=== PATIENT | female | born 1945 | race African-American/Black ===

== ENCOUNTER → 2017-08-17 | Outpatient (CLI) | payer MEDICARE ==
--- NOTE | 2017-08-17 15:14 | WOMENS IMAGING REPORT ---
EXAM DESCRIPTION: 3D SCREENING MAMMO BILAT COMPLETED DATE/TIME: 08/17/2017 2:47 pm REASON FOR STUDY: SCREENING MAMMO Z12.31 ENCNTR SCREEN MAMMOGRAM FOR MALIGNANT NEOPLASM OF TRACI COMPARISON: 2008, 2012 TECHNIQUE: Standard craniocaudal and mediolateral oblique views of each breast recorded using digita l acquisition and breast tomosynthesis. LIMITATIONS: None. FINDINGS: No masses, calcifications or architectural distortion. No areas of suspicion. Read with the assistance of CAD. .[facility] - R2 Cenova Version 1.3 .[facility] - R2 Cenova Version 1.3 .[facility] - R2 Cenova Version 2.4 .[facility] - R2 Cenova Version 2.4 .[facility] - R2 Information Security Officer Version 9.2 IMPRESSION: NORMAL MAMMOGRAM. BIRADS 1. BREAST DENSITY: b. There are scattered areas of fibroglandular density. BIRAD: 1 NEGATIVE RECOMMENDATION: ROUTINE SCREENING COMMENT: The patient has been notified of the results by letter per SA requirements. Additional no tification policies are in place for contacting patient with suspicious or incomplete findings. Quality ID #[id number]: The [employer] recommends an annual screening mammogram for women aged 40 years or over. This facility utilizes a reminder system to ensure that all patients receive reminder letters, and/or direct phone calls for appointments. This includes reminders for routine scr eening mammograms, diagnostic mammograms, or other Breast Imaging Interventions when appropriate. Th is patient will be placed in the appropriate reminder system. The [employer] (ACR) has developed recommendations for screening MRI of the breast s in certain patient populations, to be used in conjunction with mammography. Breast MRI surveillanc e may be appropriate for women with more than 20% lifetime risk of developing breast cancer as deter mined by genetic testing, significant family history of the disease, or history of mantle radiation f or Hodgkins Disease. ACR Practice Guidelines 2008. DBT Technology DBT is a type of tomographic mammography. With conventional mammography, overlapping breast tissue ma y make lesions difficult to detect, even with good compression. DBT uses an x-ray tube that rotates a round the breast, taking images at different angles. These images are then combined to create thin sl ices of the breast that the radiologist can view as a 3D reconstruction. The [employer] unit can perform full-field digital mammograms (2D imaging); or DBT (3D imaging); or both, in a combination mode that quickly performs both the mammogram and the tomosynthesis scan while the breast is still compressed. PQRS 6045F: Fluoroscopic imaging is not utilized for breast tomosynthesis. TECHNICAL DOCUMENTATION: FINDING NUMBER: (1) ASSESSMENT: (1) JOB ID: [id number] [employer]- All Rights Reserved
== END ==
LOC: WI 14:27
PROVIDERS: ATTEND Internal Medicine
DX: Z12.31 Encounter for screening mammogram for malignant neoplasm of breast (principal)
CPT/HCPCS: 77063; G0202; 77067

== ENCOUNTER 2018-10-24 11:31 | Emergency (ER) | payer MEDICARE ==
--- NOTE | 2018-10-24 12:14 | ER Document Report ---
ED Medical Screen (RME) - General Chief Complaint: Cold Symptoms Stated Complaint: COLD SYMPTOMS Time Seen by Provider: 10/24/18 12:13 Mode of Arrival: Wheelchair Information source: Patient, Relative TRAVEL OUTSIDE OF THE [place] IN LAST 30 DAYS: No - HPI Patient complains to provider of: cough Onset: Other - pt with c/o cough and congestion for the past 2-3 wks - Related Data Allergies/Adverse Reactions: No Known Allergies Allergy (Unverified 02/13/15 13:55) Past Medical History - Social History Chew tobacco use (# tins/day): No Frequency of alcohol use: None Drug Abuse: None - Past Medical History Cardiac Medical History: Reports: Hx Hypertension Endocrine Medical History: Denies: Hx Diabetes Mellitus Type 2 Renal/ Medical History: Denies: Hx Peritoneal Dialysis Past Surgical History: Reports: Hx Cholecystectomy - Immunizations Hx Diphtheria, Pertussis, Tetanus Vaccination: Yes Physical Exam - Vital signs Vitals: Temp Pulse Resp BP Pulse Ox 98.7 F 93 16 147/83 H 98 10/24/18 11:56 10/24/18 11:56 10/24/18 11:56 10/24/18 11:56 10/24/18 11:56 Course - Vital Signs Vital signs: Temp Pulse Resp BP Pulse Ox 98.7 F 93 16 147/83 H 98 10/24/18 11:56 10/24/18 11:56 10/24/18 11:56 10/24/18 11:56 10/24/18 11:56 Doctor's Discharge - Discharge Referrals: JONATHAN MCCURDY MD [Primary Care Provider] - Follow up as needed
[2018-10-24 12:50] LABS: ABSOLUTE EOSINOPHILS # (AUTO) 0.2 10^3/uL (0.0-0.6); ABSOLUTE LYMPHOCYTES (AUTO) 1.3 10^3/uL (0.5-4.7); ABSOLUTE MONOCYTES (AUTO) 0.4 10^3/uL (0.1-1.4); ABSOLUTE NEUT (AUTO) 2.7 10^3/uL (1.7-8.2); BASOPHILS % (AUTO) 0.3 % (0-2); EOSINOPHILS % (AUTO) 3.5 % (0-6); HEMATOCRIT 38.5 % (36.0-47.0); LYMPHOCYTES % (AUTO) 28.3 % (13-45); MEAN CORPUSCULAR HGB CONC 33.9 g/dL (32.0-36.0); MEAN CORPUSCULAR VOLUME 91 fl (80-97); MONOCYTES % (AUTO) 8.3 % (3-13); PLATELET COUNT 212 10^3/uL (150-450); RED BLOOD COUNT 4.21 10^6/uL (3.72-5.28); RED CELL DISTRIBUTION WIDTH 13.5 % (11.5-14.0); SEGMENTED NEUTROPHILS % (AUTO) 59.6 % (42-78); TOTAL CELLS COUNTED % (AUTO) 100 %; WHITE BLOOD COUNT 4.6 10^3/uL (4.0-10.5)
[2018-10-24 13:01] LABS: ALANINE AMINOTRANSFERASE 10 U/L (9-52); ALKALINE PHOSPHATASE 57 U/L (38-126); ANION GAP 10 (5-19); ASPARTATE AMINO TRANSFERASE 18 U/L (14-36); BILIRUBIN,DIRECT 0.2 mg/dL (0.0-0.4); BILIRUBIN,TOTAL 0.9 mg/dL (0.2-1.3); BLOOD UREA NITROGEN 16 mg/dL (7-20); CALCIUM 9.8 mg/dL (8.4-10.2); CARBON DIOXIDE 28 mmol/L (22-30); CHLORIDE 103 mmol/L (98-107); GLUCOSE 175 mg/dL (75-110); POTASSIUM 3.9 mmol/L (3.6-5.0); SODIUM 140.8 mmol/L (137-145); TOTAL PROTEIN 7.1 g/dL (6.3-8.2)
[2018-10-24 13:27] LABS: A TYPE INFLUENZA AG NEGATIVE (NEGATIVE); B INFLUENZA AG NEGATIVE (NEGATIVE)
--- NOTE | 2018-10-24 13:31 | RADIOLOGY REPORT (SQ) ---
EXAM DESCRIPTION: CHEST 2 VIEWS COMPLETED DATE/TIME: 10/24/2018 1:17 pm REASON FOR STUDY: cough COMPARISON: 01/14/2008 TECHNIQUE: Frontal and lateral radiographic views of the chest acquired. NUMBER OF VIEWS: Two view. LIMITATIONS: None. FINDINGS: LUNGS AND PLEURA: No pneumothorax. Similar left basilar scarring. No consolidation or pl eural effusion. MEDIASTINUM AND HILAR STRUCTURES: Stable. HEART AND VASCULAR STRUCTURES: Mild cardiomegaly, similar to the prior study. BONES: No acute findings. HARDWARE: None in the chest. OTHER: No other significant finding. IMPRESSION: NO ACUTE FINDINGS. TECHNICAL DOCUMENTATION: JOB ID: [id number] [place]-72 2010 [employer]- All Rights Reserved Reading location - IP/workstation name: [email or web address]
[2018-10-24] MEDS ORDERED: DIPHENHYDRAMINE HCL 25 MG CAPSULE PO ONE (13:55)
[2018-10-24] MEDS ORDERED: BENZONATATE 100 MG CAPSULE PO ONE (13:55)
--- NOTE | 2018-10-24 14:01 | ER Document Report ---
ED General - General Chief Complaint: Cold Symptoms Stated Complaint: COLD SYMPTOMS Time Seen by Provider: 10/24/18 12:13 Mode of Arrival: Wheelchair Information source: Patient Notes: 73-year-old female presents emergency department with complaints of a productive cough and nasal congestion for the last 3 weeks. She denies any fever, chills, sore throats, chest pain, difficulty breathing. Patient states that she does have a history of diabetes and hypertension. She states she has been taking her medication as directed. Her blood sugars have been running normal. Patient denies a history of sick contacts. Patient does not smoke. No history of COPD or asthma. Patient denies any wheezing. TRAVEL OUTSIDE OF THE [place] IN LAST 30 DAYS: No - HPI Onset: Other - 3 weeks Onset/Duration: Persistent Quality of pain: No pain Severity: None Pain Level: Denies Associated symptoms: Rhinnorhea Exacerbated by: Denies Relieved by: Denies Similar symptoms previously: No Recently seen / treated by doctor: No - Related Data Allergies/Adverse Reactions: No Known Allergies Allergy (Unverified 02/13/15 13:55) Past Medical History - General Information source: Patient, Relative - Social History Smoking Status: Never Smoker Chew tobacco use (# tins/day): No Frequency of alcohol use: None Drug Abuse: None Family History: Reviewed & Not Pertinent Patient has suicidal ideation: No Patient has homicidal ideation: No - Past Medical History Cardiac Medical History: Reports: Hx Hypertension Endocrine Medical History: Denies: Hx Diabetes Mellitus Type 2 Renal/ Medical History: Denies: Hx Peritoneal Dialysis Past Surgical History: Reports: Hx Cholecystectomy, Hx Kidney (Renal Surgery) - Immunizations Hx Diphtheria, Pertussis, Tetanus Vaccination: Yes Review of Systems - Review of Systems Constitutional: No symptoms reported EENT: Nose congestion Cardiovascular: No symptoms reported Respiratory: Cough Gastrointestinal: No symptoms reported Genitourinary: No symptoms reported Female Genitourinary: No symptoms reported Musculoskeletal: No symptoms reported Skin: No symptoms reported Hematologic/Lymphatic: No symptoms reported Neurological/Psychological: No symptoms reported -: Yes All other systems reviewed and negative Physical Exam - Vital signs Vitals: Temp Pulse Resp BP Pulse Ox 98.7 F 93 16 147/83 H 98 10/24/18 11:56 10/24/18 11:56 10/24/18 11:56 10/24/18 11:56 10/24/18 11:56 - Notes Notes: PHYSICAL EXAMINATION: GENERAL: Well-appearing, well-nourished and in no acute distress. HEAD: Atraumatic, normocephalic. EYES: Pupils equal round and reactive to light, extraocular movements intact, conjunctiva are normal. ENT: Nares patent, oropharynx clear without exudates. Moist mucous membranes. NECK: Normal range of motion, supple without lymphadenopathy LUNGS: Breath sounds clear to auscultation bilaterally and equal. No wheezes rales or rhonchi. HEART: Regular rate and rhythm without murmurs ABDOMEN: Soft, nontender, nondistended abdomen. No guarding, no rebound. No masses appreciated. Female : deferred Musculoskeletal: Normal range of motion, no pitting or edema. No cyanosis. NEUROLOGICAL: Cranial nerves grossly intact. Normal speech, normal gait. Normal sensory, motor exams PSYCH: Normal mood, normal affect. SKIN: Warm, Dry, normal turgor, no rashes or lesions noted. Course - Re-evaluation Re-evalutation: 10/24/18 13:58 Lungs are clear to auscultation bilaterally. Patient complains of pruritus to her back. No rash identified. Patient was given Benadryl while in the emergency department. She was also given Tessalon Perles for her cough. Labs and imaging were obtained. White blood cell count is normal. Influenza negative. Chest x-ray does not show an acute process. I will discharge the patient home with a prescription for Tessalon Perles and azithromycin as her cough is been present for 3 weeks. Patient instructed to follow-up with her primary care physician this week, to take medication prescribed as directed, and to return to the emergency department for worsening symptoms. Patient is agreeable with plan of care. - Vital Signs Vital signs: Temp Pulse Resp BP Pulse Ox 98.7 F 93 16 147/83 H 98 10/24/18 11:56 10/24/18 11:56 10/24/18 11:56 10/24/18 11:56 10/24/18 11:56 - Laboratory Result Diagrams: 10/24/18 12:34 10/24/18 12:34 Laboratory results interpreted by me: 10/24/18 12:34 Glucose 175 H Discharge - Discharge Clinical Impression: Cough Condition: Good Disposition: HOME, SELF-CARE Instructions: Cough Suppressant & Expectorant Medications Prescriptions: Benzonatate [Tessalon Perles 100 mg Capsule] 100 mg PO Q8HP PRN #20 capsule PRN Reason: Azithromycin [Zithromax 250 mg Tablet] 250 mg PO ASDIR PRN #6 tablet PRN Reason: Referrals: JONATHAN MCCURDY MD [Primary Care Provider] - Follow up as needed
[2018-10-24 16:24] VITALS: BP 138/78
== END 2018-10-24 14:20 | disposition home or self-care (01) ==
LOC: ER 11:31
DX: R05 Cough (principal); R09.81 Nasal congestion; L29.9 Pruritus, unspecified; J34.89 Other specified disorders of nose and nasal sinuses; E11.9 Type 2 diabetes mellitus without complications; I10 Essential (primary) hypertension
CPT/HCPCS: 99283; 36415; 85025; 80053; 87804; 71046; A9270 ×2

== ENCOUNTER 2019-01-10 16:33 | Observation (INO) | payer MEDICARE ==
--- NOTE | 2019-01-10 17:43 | ER Document Report ---
ED Medical Screen (RME) - General Chief Complaint: Knee Pain Stated Complaint: FALL/KNEE PAIN Time Seen by Provider: 01/10/19 17:39 Primary Care Provider: JONATHAN MCCURDY MD [Primary Care Provider] - Follow up as needed Mode of Arrival: Wheelchair Information source: Relative Notes: 74-year-old female presented to ED for complaint of frequently falling over the last 3 days dizziness pain in both knees and dementia. Daughter states she is not drinking and eating or urinating as much as normal. She states her dementia is much worse and she has fallen multiple times. Daughter states that they need to bring her into the hospital because they cannot handle her at home anymore. I have explained to the daughter that we can run blood work urine and x-rays but then the provider in the ER will have to talk with Dr. Mccurdy about admitting her. Patient is alert answering some questions appropriately but not others. She does cry when I touch her knees. She states both of her legs are hurting. I have greeted and performed a rapid initial assessment of this patient. A comprehensive ED assessment and evaluation of the patient, analysis of test resu lts and completion of medical decision making process will be conducted by an additional ED providers. TRAVEL OUTSIDE OF THE [place] IN LAST 30 DAYS: No - Related Data Allergies/Adverse Reactions: No Known Allergies Allergy (Unverified 02/13/15 13:55) Past Medical History - Past Medical History Cardiac Medical History: Reports: Hx Hypertension Endocrine Medical History: Denies: Hx Diabetes Mellitus Type 2 Renal/ Medical History: Denies: Hx Peritoneal Dialysis Past Surgical History: Reports: Hx Cholecystectomy, Hx Kidney (Renal Surgery) - Immunizations Hx Diphtheria, Pertussis, Tetanus Vaccination: Yes Physical Exam - Vital signs Vitals: Temp Pulse Resp BP Pulse Ox 98.2 F 83 16 162/96 H 97 01/10/19 17:01 01/10/19 17:01 01/10/19 17:01 01/10/19 17:01 01/10/19 17:01 Course - Vital Signs Vital signs: Temp Pulse Resp BP Pulse Ox 98.2 F 83 16 162/96 H 97 01/10/19 17:01 01/10/19 17:01 01/10/19 17:01 01/10/19 17:01 01/10/19 17:01 Doctor's Discharge - Discharge Referrals: JONATHAN MCCURDY MD [Primary Care Provider] - Follow up as needed
--- NOTE | 2019-01-10 19:24 | RADIOLOGY REPORT (SQ) ---
EXAM DESCRIPTION: CT HEAD WITHOUT COMPLETED DATE/TIME: 01/10/2019 7:13 pm REASON FOR STUDY: dizziness frequent falls COMPARISON: 02/13/2015 TECHNIQUE: Axial images acquired through the brain without intravenous contrast. Images reviewed wi th bone, brain and subdural windows. Additional sagittal and coronal reconstructions were generated. Images stored on PACS. All CT scanners at this facility use dose modulation, iterative reconstruction, and/or weight based d osing when appropriate to reduce radiation dose to as low as reasonably achievable (ALARA). [facility]: Dose Right [facility]: CareDose [facility]: Dose Right [facility]: Teradose 4D [facility]: Smart ViewCast RADIATION DOSE: CT Rad equipment meets quality standard of care and radiation dose reduction techniq ues were employed. CTDIvol: 53.2 mGy. DLP: 937 mGy-cm. mGy. LIMITATIONS: None. FINDINGS: VENTRICLES: Normal size and contour. CEREBRUM: No masses. No hemorrhage. No midline shift. No evidence for acute infarction. Normal gra y/white matter differentiation. No areas of low density in the white matter. CEREBELLUM: No masses. No hemorrhage. No alteration of density. No evidence for acute infarction. EXTRAAXIAL SPACES: No fluid collections. No masses. ORBITS AND GLOBE: No intra- or extraconal masses. Normal contour of globe without masses. CALVARIUM: No fracture. PARANASAL SINUSES: No fluid or mucosal thickening. SOFT TISSUES: No mass or hematoma. OTHER: No other significant finding. IMPRESSION: NORMAL BRAIN CT WITHOUT CONTRAST. EVIDENCE OF ACUTE STROKE: NO. COMMENT: Quality ID # [id number]: Final reports with documentation of one or more dose reduction techniques (e.g., Automated exposure control, adjustment of the mA and/or kV according to patient size, use of iterative reconstruction technique) TECHNICAL DOCUMENTATION: JOB ID: [id number] [email or web address]- All Rights Reserved Reading location - IP/workstation name: [email or web address]
--- NOTE | 2019-01-10 19:25 | RADIOLOGY REPORT (SQ) ---
EXAM DESCRIPTION: KNEE BILATERAL 1-2 VIEWS COMPLETED DATE/TIME: 01/10/2019 7:08 pm REASON FOR STUDY: pain frequent falls COMPARISON: None. NUMBER OF VIEWS: Two views TECHNIQUE: AP and lateral standing bilateral knees. LIMITATIONS: None. FINDINGS: MINERALIZATION: Normal. RIGHT KNEE BONES: No acute fracture. No worrisome bone lesions. MEDIAL COMPARTMENT: No significant osteophytes. No joint space narrowing. No chondrocalcinosis. LATERAL COMPARTMENT: No significant osteophytes. No joint space narrowing. No chondrocalcinosis. PATELLOFEMORAL COMPARTMENT: No significant osteophytes. No joint space narrowing. No chondrocalc inosis. LEFT KNEE BONES: No acute fracture. No worrisome bone lesions. MEDIAL COMPARTMENT: No significant osteophytes. No joint space narrowing. No chondrocalcinosis. LATERAL COMPARTMENT: No significant osteophytes. No joint space narrowing. No chondrocalcinosis. PATELLOFEMORAL COMPARTMENT: No significant osteophytes. No joint space narrowing. No chondrocalc inosis. IMPRESSION: NEGATIVE STUDY OF THE STANDING LEFT AND RIGHT KNEES. NO SIGNIFICANT JOINT SPACE NARROWIN G OR OTHER SIGNS OF ARTHRITIS. TECHNICAL DOCUMENTATION: JOB ID: [id number] [employer]- All Rights Reserved Reading location - IP/workstation name: [email or web address]
--- NOTE | 2019-01-10 20:45 | ER Document Report ---
ED General - General Chief Complaint: Knee Pain Stated Complaint: FALL/KNEE PAIN Time Seen by Provider: 01/10/19 17:39 Mode of Arrival: Wheelchair Notes: Patient is a 74-year-old female that comes to the emergency department chief complaint of fall, weakness, and pain to both of her knees. Patient has had 3 falls this weekend per family, they found her sitting on the floor each time, she did not have any reported head injury. She states she hurts in her knees and it hurts to stand and walk in her knees. She denies back pain, abdominal pain, chest pain, headache. Family denies fever, vomiting. Family states that she is not eating correctly and she is not taking her medications. Patient lives at home, family states they need home health assistance but has not been able to get it yet. Past medical history of dementia, hypertension, type 2 diabetes, cholecystectomy. Family does state that patient is at her mental baseline. TRAVEL OUTSIDE OF THE [place] IN LAST 30 DAYS: No - Related Data Allergies/Adverse Reactions: No Known Allergies Allergy (Unverified 02/13/15 13:55) Past Medical History - General Information source: Patient, Relative - Social History Smoking Status: Never Smoker Frequency of alcohol use: None Drug Abuse: None Lives with: Family Family History: Reviewed & Not Pertinent - Past Medical History Cardiac Medical History: Reports: Hx Hypertension Endocrine Medical History: Reports: Hx Diabetes Mellitus Type 2 Renal/ Medical History: Denies: Hx Peritoneal Dialysis Past Surgical History: Reports: Hx Cholecystectomy, Hx Kidney (Renal Surgery) - Immunizations Hx Diphtheria, Pertussis, Tetanus Vaccination: Yes Review of Systems - Review of Systems Constitutional: See HPI EENT: No symptoms reported Cardiovascular: No symptoms reported Respiratory: No symptoms reported Gastrointestinal: No symptoms reported Genitourinary: No symptoms reported Female Genitourinary: No symptoms reported Musculoskeletal: See HPI Skin: No symptoms reported Hematologic/Lymphatic: No symptoms reported Neurological/Psychological: See HPI Physical Exam - Vital signs Vitals: Temp Pulse Resp BP Pulse Ox 98.2 F 83 16 162/96 H 97 01/10/19 17:01 01/10/19 17:01 01/10/19 17:01 01/10/19 17:01 01/10/19 17:01 - Notes Notes: GENERAL: Alert, interacts well. No acute distress. HEAD: Normocephalic, atraumatic. EYES: Pupils equal, round, and reactive to light. Extraocular movements intact. ENT: Oral mucosa moist, tongue midline. Oropharynx unremarkable. Airway patent. Nares patent, no nasal septal hematoma, TM's intact. NECK: Full range of motion. Supple. Trachea midline. LUNGS: Clear to auscultation bilaterally, no wheezes, rales, or rhonchi. No respiratory distress. HEART: Regular rate and rhythm. No murmur ABDOMEN: Soft, non-tender. Non-distended. Bowel sounds present in all 4 quadrants. GENITOURINARY: Deferred EXTREMITIES: Moves all 4 extremities spontaneously. No edema, normal radial and dorsalis pedis pulses bilaterally. No cyanosis. Nontender over both knees, no signs of trauma, full range of motion. BACK: no cervical, thoracic, lumbar midline tenderness. No saddle anesthesia, normal distal neurovascular exam. NEUROLOGICAL: Alert and oriented x3. Normal speech. However patient has significant ataxia, she has noticeable imbalance and unsteadiness when trying to ambulate and has to be assisted. [cranial nerves II through XII grossly intact]. PSYCH: Normal affect, normal mood. SKIN: Warm, dry, normal turgor. No rashes or lesions noted. Course - Re-evaluation Re-evalutation: I spoke to daughter over the phone, daughter states that patient gets up to walk and then loses her balance and falls. She has done this repeatedly over the past weekend and also 6 times over the past week. 01/10/19 22:35 CBC unremarkable, chemistry unremarkable. CT of the head unremarkable. Chest x-ray unremarkable. No acute findings on the x-rays as well. No signs of trauma. I did get the patient up at bedside, patient is able to stand and walk but she is very unsteady and quickly loses her balance or stumbles. She did not have pain in her knees, she does not appear to have any pain in her hips and also denies pain. Family state that she normally walks without a walker and this is not her baseline. Patient denies feeling dizzy but she reports frustration with the instability. Because of her new reported ataxia, and ataxia on exam, will discuss with her provider for potential admission. Discussed with Dr. Hurtado. Discussed with Dr. Royal, patient will be admitted to telemetry observation. Family states satisfaction agreement with this plan. - Vital Signs Vital signs: Temp Pulse Resp BP Pulse Ox 98.4 F 80 14 151/75 H 100 01/10/19 22:36 01/10/19 22:36 01/10/19 22:36 01/10/19 22:36 01/10/19 22:36 - Laboratory Result Diagrams: 01/10/19 20:35 01/10/19 20:35 Laboratory results interpreted by me: 01/10/19 20:35 Carbon Dioxide 32 H BUN 22 H Est GFR (Non-Af Amer) 56 L Glucose 127 H Calcium 10.3 H Discharge - Discharge Clinical Impression: Ataxia, Multiple falls Condition: Stable Disposition: ADMITTED OBSERVATION Admitting Provider: Genny Unit Admitted: Telemetry
[2019-01-10 20:46] LABS: ABSOLUTE EOSINOPHILS # (AUTO) 0.2 10^3/uL (0.0-0.6); ABSOLUTE LYMPHOCYTES (AUTO) 1.6 10^3/uL (0.5-4.7); ABSOLUTE MONOCYTES (AUTO) 0.5 10^3/uL (0.1-1.4); ABSOLUTE NEUT (AUTO) 3.2 10^3/uL (1.7-8.2); BASOPHILS % (AUTO) 0.3 % (0-2); EOSINOPHILS % (AUTO) 4.1 % (0-6); HEMATOCRIT 36.9 % (36.0-47.0); HEMOGLOBIN 12.5 g/dL (12.0-15.5); LYMPHOCYTES % (AUTO) 28.7 % (13-45); MEAN CORPUSCULAR HEMOGLOBIN 30.9 pg (27.0-33.4); MEAN CORPUSCULAR HGB CONC 33.9 g/dL (32.0-36.0); MEAN CORPUSCULAR VOLUME 91 fl (80-97); MONOCYTES % (AUTO) 8.8 % (3-13); PLATELET COUNT 212 10^3/uL (150-450); RED BLOOD COUNT 4.05 10^6/uL (3.72-5.28); SEGMENTED NEUTROPHILS % (AUTO) 58.1 % (42-78); TOTAL CELLS COUNTED % (AUTO) 100 %; WHITE BLOOD COUNT 5.5 10^3/uL (4.0-10.5)
--- NOTE | 2019-01-10 20:46 | EKG REPORT ---
SEVERITY:- BORDERLINE ECG - SINUS RHYTHM BORDERLINE T WAVE ABNORMALITIES : Confirmed by: Chris Del Angel 10-Jan-2019 20:45:28
[2019-01-10 21:05] LABS: ALANINE AMINOTRANSFERASE 18 U/L (9-52); ALBUMIN 3.5 g/dL (3.5-5.0); ALKALINE PHOSPHATASE 63 U/L (38-126); ANION GAP 5 (5-19); ASPARTATE AMINO TRANSFERASE 26 U/L (14-36); BILIRUBIN,DIRECT 0.2 mg/dL (0.0-0.4); BILIRUBIN,TOTAL 1.1 mg/dL (0.2-1.3); BLOOD UREA NITROGEN 22 mg/dL (7-20); CALCIUM 10.3 mg/dL (8.4-10.2); CARBON DIOXIDE 32 mmol/L (22-30); CHLORIDE 107 mmol/L (98-107); GLUCOSE 127 mg/dL (75-110); POTASSIUM 3.6 mmol/L (3.6-5.0); SODIUM 143.9 mmol/L (137-145); TOTAL PROTEIN 6.9 g/dL (6.3-8.2)
--- NOTE | 2019-01-10 21:23 | RADIOLOGY REPORT (SQ) ---
EXAM DESCRIPTION: XR CHEST 1 VIEW COMPLETED DATE/TME: 01/10/2019 20:42 CLINICAL HISTORY: 74 years, Female, weakness COMPARISON: None. NUMBER OF VIEWS: TECHNIQUE: LIMITATIONS: None. FINDINGS: There is possible emphysema. No evidence of pulmonary infiltrate or pleural effusion. The heart is top normal to mildly enlarged. No evidence of heart failure. There is tortuosity of the thoracic aorta. IMPRESSION: Possible emphysema. Top normal to mildly enlarged heart. copyright 2010 [employer]- All Rights Reserved
[2019-01-11] MEDS ORDERED: DEXTROSE 40% GEL 15 GM TUBE PO PRN (03:00)
[2019-01-11] MEDS ORDERED: GLUCAGON,HUMAN RECOMB 1 MG INJ IM PRN (03:00)
[2019-01-11] MEDS ORDERED: DEXTROSE 40% GEL 15 GM TUBE X 2 PO PRN (03:00)
[2019-01-11] MEDS ORDERED: DEXTROSE 50%-WATER SYRINGE 12.5 GM/25 ML DOSE IV PRN (03:00)
[2019-01-11] MEDS ORDERED: DEXTROSE 50%-WATER SYRINGE 25 GM/50 ML DOSE IV PRN (03:00)
[2019-01-11] MEDS: INSULIN LISPRO 100 UNIT/ML 3 ML VIAL SUBCUT SCH ×4 (09:23→21:49)
[2019-01-11] MEDS: MELOXICAM 7.5 MG TABLET PO SCH (09:24)
--- NOTE | 2019-01-11 12:37 | RADIOLOGY REPORT (SQ) ---
EXAM DESCRIPTION: MRI HEAD WITHOUT COMPLETED DATE/TIME: 01/11/2019 11:55 am REASON FOR STUDY: repeated fall ,r/o normal pressure hydrocephalus COMPARISON: CT brain 01/10/2019 MRI brain 12/14/2014 TECHNIQUE: Multiplanar imaging includes non-contrasted T1, T2, FLAIR, and diffusion with ADC map seq uences. Images stored on PACS. LIMITATIONS: Motion artifact, rapid sequences were utilized FINDINGS: Motion artifact throughout the study. The prior CT from 01/10/2019 was reviewed. There is dolichoectasia of the basilar artery, which is dif fusely enlarged and tortuous. Basilar artery aneurysm could not be excluded. [place] [facility] e xam were CTA exam of the brain is recommended. Very limited imaging of the brain by MRI today demonstrates motion artifact. There is moderate bifro ntal and biparietal chronic small vessel ischemic change. Diffusion-weighted images demonstrate signal dropout in the right thalamus right middle cerebellar pe duncle and bilateral cerebellar white matter which could represent hemosiderin blooming artifact rela diana to cavernous malformations. Hemosiderin staining from tiny remote prior hemorrhagic infarcts is also possible. Ventricles and extra-axial CSF spaces are grossly unremarkable. Paranasal sinuses grossly clear. IMPRESSION: Limited study, motion artifact. No MR evidence of acute large territory ischemic change Chronic small vessel white matter disease in the bifrontal and biparietal regions Diffusion-weighted images demonstrate hemosiderin staining in the right thalamus, right middle cerebe llar peduncle and bilateral cerebellar hemispheres. Subtle changes were present in these areas on pr ior MRI 2014, this may represent multiple small cavernous malformations or old hemorrhagic infarcts. Dolichoectasia of the basilar artery, question basilar tip aneurysm. When the patient's acute condit ion resolves, [place] [facility] exam is recommended for followup. EVIDENCE OF ACUTE STROKE: NO. TECHNICAL DOCUMENTATION: JOB ID: [id number] [employer]- All Rights Reserved Reading location - IP/workstation name: [email or web address]
[2019-01-11] MEDS: ASPIRIN 81 MG TABLET, ENT COATED PO SCH (13:38)
[2019-01-11] MEDS: HYDROCHLOROTHIAZIDE 25 MG TABLET PO SCH (13:38)
[2019-01-11] MEDS: VALSARTAN 160 MG TABLET PO SCH (13:42)
[2019-01-11] MEDS: METFORMIN HCL 500 MG TABLET PO SCH ×2 (13:42→17:56)
--- NOTE | 2019-01-11 20:12 | PDOC H&P ---
History of Present Illness Admission Date/PCP: 01/10/19 23:51 JONATHAN MCCURDY MD History of Present Illness: JEANETTE REDD is a 74 year old female, She was brought to the emergency room by family members for evaluation of frequent falls, she has baseline dementia, arthropathy of both knees due to osteoarthritis, type 2 diabetes mellitus, poorly compliant with office visits. 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 The ventricles and extra-axial CSF spaces are grossly unremarkable Past Medical History Cardiac Medical History: Reports: Hypertension Endocrine Medical History: Reports: Diabetes Mellitus Type 2 Psychiatric Medical History: Reports: Dementia Past Surgical History Past Surgical History: Reports: Cholecystectomy Social History Lives with: Family Smoking Status: Never Smoker Frequency of Alcohol Use: None Hx Recreational Drug Use: No Drugs: None Hx Prescription Drug Abuse: No Family History Family History: Reviewed & Not Pertinent Parental Family History Reviewed: Yes Children Family History Reviewed: Yes Sibling(s) Family History Reviewed.: Yes Medication/Allergy Home Medications: Aspirin [Adult Low Dose Aspirin EC] 81 mg PO DAILY 01/11/19 Atorvastatin Calcium [Lipitor 40 mg Tablet] 40 mg PO QHS 01/11/19 Donepezil HCl [Aricept] 10 mg PO QHS 01/11/19 Meloxicam [Mobic] 7.5 mg PO DAILY 01/11/19 Metformin HCl [Glucophage] 1,000 mg PO BID 01/11/19 Valsartan/Hydrochlorothiazide [Valsartan-Hctz 320-25 mg Tab] 1 each PO DAILY 01/11/19 Allergies/Adverse Reactions: No Known Allergies Allergy (Unverified 02/13/15 13:55) Review of Systems Constitutional: ABSENT: chills, fever(s), headache(s), weight gain, weight loss Eyes: ABSENT: visual disturbances Ears: ABSENT: hearing changes Cardiovascular: ABSENT: chest pain, dyspnea on exertion, edema, orthropnea, palpitations Respiratory: ABSENT: cough, hemoptysis Gastrointestinal: ABSENT: abdominal pain, constipation, diarrhea, hematemesis, hematochezia, nausea, vomiting Genitourinary: ABSENT: dysuria, hematuria Musculoskeletal: ABSENT: joint swelling Integumentary: ABSENT: rash, wounds Neurological: PRESENT: abnormal gait, frequent falls Psychiatric: ABSENT: anxiety, depression, homidical ideation, suicidal ideation Endocrine: ABSENT: cold intolerance, heat intolerance, menstrual abnormalities, polydipsia, polyuria Hematologic/Lymphatic: ABSENT: easy bleeding, easy bruising, lymphadenopathy Physical Exam Vital Signs: Temp Pulse Resp BP Pulse Ox 98.0 F 75 16 156/78 H 93 01/11/19 15:17 01/11/19 15:17 01/11/19 15:17 01/11/19 15:17 01/11/19 15:17 Intake & Output 01/10/19 01/11/19 01/12/19 06:59 06:59 06:59 Intake Total 595 Output Total 0 0 Balance 0 595 Weight 198.5 kg General appearance: PRESENT: no acute distress Head exam: PRESENT: atraumatic, normocephalic Ear exam: PRESENT: normal external ear exam Neck exam: PRESENT: full ROM Respiratory exam: PRESENT: clear to auscultation chung Cardiovascular exam: PRESENT: RRR, +S1, +S2 Vascular exam: PRESENT: normal capillary refill GI/Abdominal exam: PRESENT: soft Rectal exam: PRESENT: deferred Neurological exam: PRESENT: alert, CN II-XII grossly intact Results Laboratory Results: 01/10/19 20:35 01/10/19 20:35 01/10/19 01/10/19 20:35 20:35 WBC 5.5 RBC 4.05 Hgb 12.5 Hct 36.9 MCV 91 MCH 30.9 MCHC 33.9 RDW 14.0 Plt Count 212 Seg Neutrophils % 58.1 Lymphocytes % 28.7 Monocytes % 8.8 Eosinophils % 4.1 Basophils % 0.3 Absolute Neutrophils 3.2 Absolute Lymphocytes 1.6 Absolute Monocytes 0.5 Absolute Eosinophils 0.2 Absolute Basophils 0.0 Sodium 143.9 Potassium 3.6 Chloride 107 Carbon Dioxide 32 H Anion Gap 5 BUN 22 H Creatinine 0.98 Est GFR ( Amer) > 60 Est GFR (Non-Af Amer) 56 L Glucose 127 H Calcium 10.3 H Total Bilirubin 1.1 AST 26 ALT 18 Alkaline Phosphatase 63 Total Protein 6.9 Albumin 3.5 01/10/19 20:35 Troponin I 0.014 Impressions: Knee X-Ray 01/10/19 17:39 IMPRESSION: NEGATIVE STUDY OF THE STANDING LEFT AND RIGHT KNEES. NO SIGNIFICANT JOINT SPACE NARROWING OR OTHER SIGNS OF ARTHRITIS. Head CT 01/10/19 17:40 IMPRESSION: NORMAL BRAIN CT WITHOUT CONTRAST. EVIDENCE OF ACUTE STROKE: NO. Chest X-Ray 01/10/19 20:42 IMPRESSION: Possible emphysema. Top normal to mildly enlarged heart. copyright 2010 [employer]- All Rights Reserved Head MRI 01/11/19 00:00 IMPRESSION: Limited study, motion artifact. No MR evidence of acute large territory ischemic change Chronic small vessel white matter disease in the bifrontal and biparietal regions Diffusion-weighted images demonstrate hemosiderin staining in the right thalamus, right middle cerebellar peduncle and bilateral cerebellar hemispheres. Subtle changes were present in these areas on prior MRI 2014, this may represent multiple small cavernous malformations or old hemorrhagic infarcts. Dolichoectasia of the basilar artery, question basilar tip aneurysm. When the patient's acute condition resolves, [facility] exam is recommended for followup. EVIDENCE OF ACUTE STROKE: NO. Assessment & Plan - Diagnosis (1) Frequent falls Is this a current diagnosis for this admission?: Yes Plan: The cause of the frequent fall is multifactorial, dementia, arthropathy (2) Dementia Qualifiers: Dementia type: Alzheimer's disease Alzheimer's disease onset: late-onset Dementia behavioral disturbance: without behavioral disturbance Qualified Code(s): G30.1 - Alzheimer's disease with late onset; F02.80 - Dementia in other diseases classified elsewhere without behavioral disturbance Is this a current diagnosis for this admission?: Yes (3) T2DM (type 2 diabetes mellitus) Qualifiers: Diabetes mellitus half-way insulin use: without terminal system operator use Diabetes mellitus complication status: without complication Qualified Code(s): E11.9 - Type 2 diabetes mellitus without complications Is this a current diagnosis for this admission?: Yes
[2019-01-11] MEDS: ATORVASTATIN CALCIUM 40 MG TABLET PO SCH (21:49)
[2019-01-11] MEDS: DONEPEZIL HCL 5 MG TABLET PO SCH (21:49)
[2019-01-12] MEDS: INSULIN LISPRO 100 UNIT/ML 3 ML VIAL SUBCUT SCH ×4 (08:21→22:15)
[2019-01-12] MEDS: MELOXICAM 7.5 MG TABLET PO SCH (09:33)
[2019-01-12] MEDS: METFORMIN HCL 500 MG TABLET PO SCH ×3 (11:13→18:50)
[2019-01-12] MEDS: VALSARTAN 160 MG TABLET PO SCH ×2 (11:17→12:06)
[2019-01-12] MEDS: ASPIRIN 81 MG TABLET, ENT COATED PO SCH ×2 (11:17→12:06)
[2019-01-12] MEDS: HYDROCHLOROTHIAZIDE 25 MG TABLET PO SCH (11:18)
--- NOTE | 2019-01-12 14:24 | PDOC DISCHARGE SUMMARY ---
General - Admit/Disc Date/PCP Admission Date/Primary Care Provider: 01/10/19 23:51 JONATHAN MCCURDY MD Discharge Date: 01/12/19 - Discharge Diagnosis (1) Frequent falls Is this a current diagnosis for this admission?: Yes (2) Dementia Is this a current diagnosis for this admission?: Yes (3) T2DM (type 2 diabetes mellitus) Is this a current diagnosis for this admission?: Yes - Additional Information Home Medications: RX: Aspirin [Adult Low Dose Aspirin EC] 81 mg PO DAILY 01/11/19 RX: Atorvastatin Calcium [Lipitor 40 mg Tablet] 40 mg PO QHS 01/11/19 RX: Donepezil HCl [Aricept] 10 mg PO QHS 01/11/19 RX: Meloxicam [Mobic] 7.5 mg PO DAILY 01/11/19 RX: Metformin HCl [Glucophage] 1,000 mg PO BID 01/11/19 RX: Valsartan/Hydrochlorothiazide [Valsartan-Hctz 320-25 mg Tab] 1 each PO DAILY 01/11/19 History of Present Illness History of Present Illness: JEANETTE REDD is a 74 year old female, She was brought to the emergency room by family members for evaluation of frequent falls, she has baseline dementia, arthropathy of both knees due to osteoarthritis, type 2 diabetes mellitus, poorly compliant with office visits. 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 The ventricles and extra-axial CSF spaces are grossly unremarkable Hospital Course Hospital Course: Patient was admitted for the management of frequent fall, normal pressure hydrocephalus was suspected because she has frequent fall with a background of dementia, MRI of the head was done, it was a poor study because of motion artifact, there was no evidence of hydrocephalus on the MRI, family wants patient placed in a long term home but she does not meet inpatient admission criteria she was only admitted for observation Physical Exam Vital Signs: Temp Pulse Resp BP Pulse Ox 98.0 F 72 16 142/71 H 99 01/12/19 07:57 01/12/19 07:57 01/12/19 07:57 01/12/19 07:57 01/12/19 07:57 Intake & Output 01/11/19 01/12/19 01/13/19 06:59 06:59 06:59 Intake Total 945 Output Total 0 0 Balance 0 945 Weight 198.5 kg 107.3 kg General appearance: PRESENT: no acute distress Head exam: PRESENT: atraumatic, normocephalic Eye exam: PRESENT: PERRLA Mouth exam: PRESENT: moist, tongue midline Neck exam: PRESENT: full ROM Respiratory exam: PRESENT: clear to auscultation chung Cardiovascular exam: PRESENT: RRR, +S1, +S2 Vascular exam: PRESENT: normal capillary refill GI/Abdominal exam: PRESENT: normal bowel sounds, soft Rectal exam: PRESENT: deferred Neurological exam: PRESENT: alert, CN II-XII grossly intact Psychiatric exam: PRESENT: appropriate affect, normal mood Skin exam: PRESENT: dry, intact, warm Results Laboratory Results: 01/10/19 20:35 01/10/19 20:35 01/10/19 20:35 Troponin I 0.014 Impressions: Knee X-Ray 01/10/19 17:39 IMPRESSION: NEGATIVE STUDY OF THE STANDING LEFT AND RIGHT KNEES. NO SIGNIFICANT JOINT SPACE NARROWING OR OTHER SIGNS OF ARTHRITIS. Head CT 01/10/19 17:40 IMPRESSION: NORMAL BRAIN CT WITHOUT CONTRAST. EVIDENCE OF ACUTE STROKE: NO. Chest X-Ray 01/10/19 20:42 IMPRESSION: Possible emphysema. Top normal to mildly enlarged heart. copyright 2010 [employer]- All Rights Reserved Head MRI 01/11/19 00:00 IMPRESSION: Limited study, motion artifact. No MR evidence of acute large territory ischemic change Chronic small vessel white matter disease in the bifrontal and biparietal regions Diffusion-weighted images demonstrate hemosiderin staining in the right thalamus, right middle cerebellar peduncle and bilateral cerebellar hemispheres. Subtle changes were present in these areas on prior MRI 2014, this may represent multiple small cavernous malformations or old hemorrhagic infarcts. Dolichoectasia of the basilar artery, question basilar tip aneurysm. When the patient's acute condition resolves, [facility] exam is recommended for followup. EVIDENCE OF ACUTE STROKE: NO. Qualifiers - * PATIENT BEING DISCHARGED WITH ANY OF THE FOLLOWING DIAGNOSIS: No
[2019-01-12 18:13] VITALS: BP 177/91
[2019-01-12] MEDS: ATORVASTATIN CALCIUM 40 MG TABLET PO SCH (21:56)
[2019-01-12] MEDS: DONEPEZIL HCL 5 MG TABLET PO SCH (21:56)
== END 2019-01-12 22:30 | disposition home health service (06) ==
LOC: ER 16:33 → INTOOBSV 23:51 → EH 23:51 → OBSVTOIN 23:51 → 3W 01-11 01:54
PROVIDERS: ADMIT Internal Medicine; ATTEND Internal Medicine
DX: R29.6 Repeated falls (principal); G30.1 Alzheimer's disease with late onset; F02.80 Dementia in other diseases classified elsewhere, unspecified severity, without behavioral disturbance, psychotic disturbance, mood disturbance, and anxiety; E11.9 Type 2 diabetes mellitus without complications; M17.0 Bilateral primary osteoarthritis of knee; R53.1 Weakness; R27.0 Ataxia, unspecified; I10 Essential (primary) hypertension; Z79.899 Other long term (current) drug therapy; Z79.82 Long term (current) use of aspirin; Z79.84 Long term (current) use of oral hypoglycemic drugs; Z90.49 Acquired absence of other specified parts of digestive tract; Z91.14 Patient's other noncompliance with medication regimen
CPT/HCPCS: 93005; 99285; 36415; 82962 ×2; 85025; 80053; 84484; 83036; 70551; 71045; 73560; 70450; 93010; G0378 ×2; A9270 ×8

== ENCOUNTER 2019-06-22 11:34 | Emergency (ER) | payer MEDICARE ==
--- NOTE | 2019-06-22 11:59 | ER Document Report ---
ED General - General Chief Complaint: Wrist Injury Stated Complaint: FALL,LEFT WRIST INJURY Time Seen by Provider: 06/22/19 11:56 Primary Care Provider: JONATHAN MCCURDY MD [Primary Care Provider] - Follow up as needed TRAVEL OUTSIDE OF THE [place] IN LAST 30 DAYS: No - HPI Patient complains to provider of: Pain Notes: Patient presents with 10/10 sharp left wrist pain. Patient is status post fall at home fell on outstretched hand. [place] any other trauma. Patient is right- hand dominant, soft compartments, given 100 mcg fentanyl prehospital by EMS. - Related Data Allergies/Adverse Reactions: No Known Allergies Allergy (Unverified 02/13/15 13:55) Past Medical History - Social History Smoking Status: Unknown if Ever Smoked Family History: Reviewed & Not Pertinent - Past Medical History Cardiac Medical History: Reports: Hx Hypertension Endocrine Medical History: Reports: Hx Diabetes Mellitus Type 2 Renal/ Medical History: Denies: Hx Peritoneal Dialysis Psychiatric Medical History: Reports: Hx Dementia Denies: Hx Depression Past Surgical History: Reports: Hx Cholecystectomy, Hx Kidney (Renal Surgery) - Immunizations Hx Diphtheria, Pertussis, Tetanus Vaccination: Yes Review of Systems - Review of Systems Notes: REVIEW OF SYSTEMS: CONSTITUTIONAL: -fevers, -chills EENT: -eye pain, -difficulty swallowing, -nasal congestion CARDIOVASCULAR: -chest pain, -syncope. RESPIRATORY: -cough, -SOB GASTROINTESTINAL: -abdominal pain, -nausea, -vomiting, -diarrhea GENITOURINARY: -dysuria, -hematuria MUSCULOSKELETAL: positive left wrist pain SKIN: -rash or skin lesions. HEMATOLOGIC: -easy bruising or bleeding. LYMPHATIC: -swollen, enlarged glands. NEUROLOGICAL: -altered mental status or loss of consciousness, -headache, - neurologic symptoms PSYCHIATRIC: -anxiety, -depression. ALL OTHER SYSTEMS REVIEWED AND NEGATIVE. Physical Exam - Vital signs Vitals: Temp Pulse Resp BP Pulse Ox 99.3 F 77 18 170/90 H 97 06/22/19 11:42 06/22/19 11:42 06/22/19 11:42 06/22/19 11:42 06/22/19 11:42 - Notes Notes: PHYSICAL EXAMINATION: GENERAL: Well-appearing, well-nourished and in no acute distress. HEAD: Atraumatic, normocephalic. EYES: Pupils equal round and reactive to light, extraocular movements intact, sclera anicteric, conjunctiva are normal. ENT: nares patent, oropharynx clear without exudates. Moist mucous membranes. NECK: Normal range of motion, supple without lymphadenopathy LUNGS: Breath sounds clear to auscultation bilaterally and equal. No wheezes rales or rhonchi. HEART: Regular rate and rhythm without murmurs ABDOMEN: Soft, nontender, normoactive bowel sounds. No guarding, no rebound. No masses appreciated. EXTREMITIES: No obvious deformity to left wrist, is in splint by EMS. Patient does have pain over the bilateral sides of risks and that is her distal radius and distal ulna. Negative snuffbox tenderness, NEUROLOGICAL: Cranial nerves grossly intact. Normal speech, normal gait. Normal sensory and motor exams. PSYCH: Normal mood, normal affect. SKIN: Warm, Dry, normal turgor, no rashes or lesions noted. Course - Re-evaluation Re-evalutation: 06/22/19 13:40 Well-appearing female in minor wrist trauma. She has had chronic pain in her left wrist from osteoarthritis per family. Imaging study unremarkable will be discharged home improved follow-up PCP given strict return precautions. - Vital Signs Vital signs: Temp Pulse Resp BP Pulse Ox 99.3 F 77 18 170/90 H 97 06/22/19 11:42 06/22/19 11:42 06/22/19 11:42 06/22/19 11:42 06/22/19 11:42 - Laboratory Laboratory results interpreted by me: 06/22/19 12:22 POC Glucose 164 H Discharge - Discharge Clinical Impression: Left wrist sprain Qualifiers: Encounter type: initial encounter Qualified Code(s): S63.502A - Unspecified sprain of left wrist, initial encounter Condition: Stable Disposition: HOME, SELF-CARE Referrals: JONATHAN MCCURDY MD [Primary Care Provider] - Follow up as needed
--- NOTE | 2019-06-22 12:57 | RADIOLOGY REPORT (SQ) ---
EXAM DESCRIPTION: WRIST LEFT 3 VIEWS COMPLETED DATE/TIME: 06/22/2019 12:22 pm REASON FOR STUDY: fall; deformity present; painful COMPARISON: None. NUMBER OF VIEWS: Three views. TECHNIQUE: AP, lateral, and oblique radiographic images acquired of the left wrist. LIMITATIONS: None. FINDINGS: MINERALIZATION: Decreased. BONES: No acute fracture or dislocation. No worrisome bone lesions. Normal alignment. Mild degener ative changes about the wrist with small osteophytes. Likely mild chondrocalcinosis. SOFT TISSUES: No soft tissue swelling. No foreign body. OTHER: No other significant finding. IMPRESSION: Mild degenerative changes about the wrist without definite acute bony abnormality. TECHNICAL DOCUMENTATION: JOB ID: [id number] [facility]- All Rights Reserved Reading location - IP/workstation name: [email or web address]
[2019-06-22 14:03] VITALS: BP 174/89
== END 2019-06-22 14:15 | disposition home or self-care (01) ==
LOC: ER 11:34
DX: S63.502A Unspecified sprain of left wrist, initial encounter (principal); M25.532 Pain in left wrist; W19.XXXA Unspecified fall, initial encounter; I10 Essential (primary) hypertension; E11.9 Type 2 diabetes mellitus without complications
CPT/HCPCS: 82962

== ENCOUNTER 2019-08-06 07:12 | Emergency (ER) | payer MEDICARE ==
--- NOTE | 2019-08-06 08:53 | ER Document Report ---
ED General - General Chief Complaint: Back Pain Stated Complaint: BACK PAIN Time Seen by Provider: 08/06/19 08:33 Primary Care Provider: JONATHAN MCCURDY MD [Primary Care Provider] - Follow up as needed TRAVEL OUTSIDE OF THE [place] IN LAST 30 DAYS: No - HPI Notes: 74-year-old female presenting with a chief complaint of intermittent low back pain. Patient is an elderly female with a history of osteoarthritis and diabetes mellitus type 2. Presents with 3-day history of intermittent low back pain. Onset: Gradual area Duration: Intermittent. Currently experiencing no pain. Quality dull. Location and lower mid back. Radiation: None. Precipitating factors: None identified. Relieving factors: Tylenol taken intermittently. Severity: Mild Pertinent prior history: Similar pain in past attributed to osteoarthritis by her primary care doctor according to patient's daughter. Pertinent negatives: Denies fever chills, dysuria or any known fall or injury. Denies skin rash. - Related Data Allergies/Adverse Reactions: No Known Allergies Allergy (Unverified 02/13/15 13:55) Past Medical History - General Information source: Patient, Relative - Social History Smoking Status: Never Smoker Chew tobacco use (# tins/day): No Frequency of alcohol use: None Drug Abuse: None Family History: Reviewed & Not Pertinent Patient has suicidal ideation: No Patient has homicidal ideation: No - Past Medical History Cardiac Medical History: Reports: Hx Hypertension Endocrine Medical History: Reports: Hx Diabetes Mellitus Type 2 Renal/ Medical History: Denies: Hx Peritoneal Dialysis Musculoskeletal Medical History: Reports Hx Arthritis Psychiatric Medical History: Reports: Hx Dementia Denies: Hx Depression Past Surgical History: Reports: Hx Cholecystectomy, Hx Kidney (Renal Surgery) - Immunizations Hx Diphtheria, Pertussis, Tetanus Vaccination: Yes Review of Systems - Review of Systems Notes: Constitutional: Negative for fever. HENT: Negative for sore throat. Eyes: Negative for visual changes. Cardiovascular: Negative for chest pain. Respiratory: Negative for shortness of breath. Gastrointestinal: Negative for abdominal pain, vomiting or diarrhea. Genitourinary: Negative for dysuria. Musculoskeletal: As per HPI. Skin: Negative for rash. Neurological: Negative for headaches, weakness or numbness. 10 point ROS negative except as marked above and in HPI. Physical Exam - Vital signs Vitals: Temp Pulse Resp BP Pulse Ox 98.7 F 100 16 149/100 H 100 11/02/19 07:18 08/06/19 07:18 08/06/19 07:18 08/06/19 07:18 08/06/19 07:18 Notes: GENERAL: Well-developed well-nourished elderly female appearing in no acute distress. SKIN: Good turgor no rashes. HEAD: Normocephalic atraumatic. EYES: PERRLA. Conjunctivae and sclerae clear. EARS: CANALS AND TMS CLEAR. Mild bilateral hearing impairment. NOSE: CLEAR. MOUTH: Moist mucosa. Good dentition. No stridor or edema. No drooling. NECK: Supple. No masses or thyromegaly. No adenopathy. Carotids 2+ without bruits. No JVD. BACK: Symmetrical without tenderness. CHEST: Respirations unlabored. Breath sounds clear and symmetrical. HEART: Regular rhythm. No murmur gallop or rub. ABDOMEN: Soft nontender without masses, organomegaly or rebound. Bowel sounds normally active. No bruits. GENITALIA: Deferred. EXTREMITIES: Mild degenerative changes in her phalangeal joints of both hands. No edema. No calf tenderness. Cap refill less than 1.5 seconds. Dorsalis pedis and posterior tibial pulses 3+ and symmetrical. NEUROLOGICAL: GCS 15. Alert and oriented x3. Normal gait. Fluent speech. Cranial nerves II through XII intact. Sensorimotor and cerebellar normal. Normal tone. PSYCHIATRIC: Flat affect Course - Re-evaluation Re-evalutation: 08/06/19 08:58 Patient is actually in no pain at this time and declines medication of any type. Plan is to check a urinalysis. - Vital Signs Vital signs: Temp Pulse Resp BP Pulse Ox 98.7 F 100 16 149/100 H 100 08/06/19 07:18 08/06/19 07:18 08/06/19 07:18 08/06/19 07:18 08/06/19 07:18 08/06/19 10:14 Abnormal UA with possible UTI. Stable for outpt. mgt. - Laboratory Laboratory results interpreted by me: 08/06/19 08:40 Urine Protein 100 H Discharge - Discharge Clinical Impression: Back pain Qualifiers: Back pain location: low back pain Chronicity: unspecified Back pain laterality: bilateral Sciatica presence: without sciatica Qualified Code(s): M54.5 - Low back pain Urinary tract infection Qualifiers: Urinary tract infection type: acute cystitis Hematuria presence: without hematuria Qualified Code(s): N30.00 - Acute cystitis without hematuria Condition: Stable Disposition: HOME, SELF-CARE Instructions: Cephalexin ([facility]), Low Back Pain ([facility]), Urinary Tract Infection ([facility]) Prescriptions: Cephalexin Monohydrate [Keflex 500 mg Capsule] 500 mg PO Q6H 5 Days capsule Referrals: JONATHAN MCCURDY MD [Primary Care Provider] - Follow up as needed
[2019-08-06 09:13] LABS: APPEARANCE,URINE CLEAR; BILIRUBIN,URINE NEGATIVE (NEGATIVE); COLOR,URINE YELLOW; GLUCOSE, URINE NEGATIVE (NEGATIVE); KETONES,URINE NEGATIVE (NEGATIVE); LEUKOCYTE ESTERASE,URINE NEGATIVE (NEGATIVE); NITRITE,URINE NEGATIVE (NEGATIVE); PROTEIN,URINE 100 mg/dL (NEGATIVE); URINE SPECIFIC GRAVITY 1.017; UROBILINOGEN,URINE NEGATIVE mg/dL (<2.0)
[2019-08-06 10:44] VITALS: BP 149/80
== END 2019-08-06 10:35 | disposition home or self-care (01) ==
LOC: ER 07:12
DX: N30.00 Acute cystitis without hematuria (principal); M54.5 Low back pain; E11.9 Type 2 diabetes mellitus without complications; I10 Essential (primary) hypertension; Z90.49 Acquired absence of other specified parts of digestive tract
CPT/HCPCS: 81001

== ENCOUNTER 2019-11-27 07:32 | Inpatient (IN) | payer MEDICARE ==
[2019-11-27 07:59] LABS: ABSOLUTE EOSINOPHILS # (AUTO) 0.2 10^3/uL (0.0-0.6); ABSOLUTE LYMPHOCYTES (AUTO) 2.6 10^3/uL (0.5-4.7); ABSOLUTE MONOCYTES (AUTO) 0.6 10^3/uL (0.1-1.4); BASOPHILS % (AUTO) 0.3 % (0-2); EOSINOPHILS % (AUTO) 2.8 % (0-6); HEMOGLOBIN 12.4 g/dL (12.0-15.5); LYMPHOCYTES % (AUTO) 40.5 % (13-45); MEAN CORPUSCULAR HEMOGLOBIN 30.6 pg (27.0-33.4); MEAN CORPUSCULAR HGB CONC 33.6 g/dL (32.0-36.0); MEAN CORPUSCULAR VOLUME 91 fl (80-97); MONOCYTES % (AUTO) 9.1 % (3-13); PLATELET COUNT 199 10^3/uL (150-450); RED BLOOD COUNT 4.06 10^6/uL (3.72-5.28); RED CELL DISTRIBUTION WIDTH 13.5 % (11.5-14.0); SEGMENTED NEUTROPHILS % (AUTO) 47.3 % (42-78); TOTAL CELLS COUNTED % (AUTO) 100 %; WHITE BLOOD COUNT 6.4 10^3/uL (4.0-10.5)
[2019-11-27 08:07] LABS: ALBUMIN 3.5 g/dL (3.5-5.0); ALKALINE PHOSPHATASE 67 U/L (38-126); ASPARTATE AMINO TRANSFERASE 22 U/L (14-36); BILIRUBIN,DIRECT 0.1 mg/dL (0.0-0.4); BILIRUBIN,TOTAL 1.1 mg/dL (0.2-1.3); BLOOD UREA NITROGEN 15 mg/dL (7-20); CALCIUM 9.4 mg/dL (8.4-10.2); CARBON DIOXIDE 34 mmol/L (22-30); CHLORIDE 100 mmol/L (98-107); CREATINE KINASE 25 U/L (30-135); GLUCOSE 183 mg/dL (75-110); POTASSIUM 3.8 mmol/L (3.6-5.0)
[2019-11-27 08:19] LABS: CREATINE KINASE MB 1.06 ng/mL (<4.55); TROPONIN I 0.027 ng/mL
[2019-11-27 08:20] LABS: ANION GAP 5 (5-19)
[2019-11-27 08:38] LABS: APPEARANCE,URINE CLEAR; BILIRUBIN,URINE NEGATIVE (NEGATIVE); COLOR,URINE YELLOW; GLUCOSE, URINE NEGATIVE (NEGATIVE); KETONES,URINE NEGATIVE (NEGATIVE); LEUKOCYTE ESTERASE,URINE NEGATIVE (NEGATIVE); NITRITE,URINE NEGATIVE (NEGATIVE); PROTEIN,URINE 100 mg/dL (NEGATIVE); URINE SPECIFIC GRAVITY 1.013
--- NOTE | 2019-11-27 10:31 | ER Document Report ---
ED Syncope and Near Syncope - General Chief Complaint: Syncope Stated Complaint: SYNCOPE Time Seen by Provider: 11/27/19 09:39 Primary Care Provider: JONATHAN MCCURDY MD [Primary Care Provider] - Follow up as needed Notes: Patient is a 74-year-old female with a history of hypertension, hyperlipidemia, and diabetes who presents to the emergency department after a syncopal episode at home. Daughter states that she was getting her washed up in the chair and she ended up slumping over. Daughter denies the patient hitting her head. Patient does have a history of dementia. Daughter states that prior to the syn copal episode, the patient was normal. Patient had also had some diarrhea, per the daughter. Due to the patient's dementia, the patient did not open up and talk to me about how she is feeling. TRAVEL OUTSIDE OF THE [place] IN LAST 30 DAYS: No - Related Data Allergies/Adverse Reactions: No Known Allergies Allergy (Unverified 02/13/15 13:55) Past Medical History - General Information source: Relative - Social History Smoking Status: Never Smoker Family History: Reviewed & Not Pertinent Patient has suicidal ideation: No Patient has homicidal ideation: No - Past Medical History Cardiac Medical History: Reports: Hx Hypertension Endocrine Medical History: Reports: Hx Diabetes Mellitus Type 2 Renal/ Medical History: Denies: Hx Peritoneal Dialysis Musculoskeletal Medical History: Reports Hx Arthritis Psychiatric Medical History: Reports: Hx Dementia Denies: Hx Depression Past Surgical History: Reports: Hx Cholecystectomy, Hx Kidney (Renal Surgery) - Immunizations Hx Diphtheria, Pertussis, Tetanus Vaccination: Yes Review of Systems - Review of Systems -: Yes ROS unobtainable due to patient's medical condition Physical Exam - Vital signs Vitals: Pulse Ox 96 11/27/19 07:49 - Notes Notes: PHYSICAL EXAMINATION: GENERAL: Appears well, healthy, well-nourished, no acute distress. HEAD: Normocephalic, atraumatic. EYES: PERRL, conjunctiva normal, all extraocular movements intact, sclera nonicteric ENT: Dry mucous membranes. NECK: Supple, no noticeable swelling, redness, rash. Normal range of motion. LUNGS: Equal breath sounds bilaterally and clear to auscultation. No wheezes rales or rhonchi. CARDIOVASCULAR: S1-S2, regular rate, regular rhythm. Radial pulses 2+, normal. ABDOMEN: Normoactive bowel sounds. Soft, nontender, no guarding, no rebound tenderness, and no masses palpated. EXTREMITIES: Normal strength and range of motion, no pitting or edema. No cyanosis. NEUROLOGICAL: Moves all extremities upon command. Strength 5/5 in all extremities. PSYCH: Normal mood, normal affect. SKIN: Warm, dry. No rash, lesions, ulcerations noted. Normal skin turgor. Course - Re-evaluation Re-evalutation: 11/27/19 10:53 Dr. Hollingsworth was at bedside. He would like the patient to have a repeat troponin and then once that is back, we will we will talk about disposition. 11/27/19 12:19 Hematology is unremarkable. Chemistries are also unremarkable. Liver function tests are normal. Patient's initial troponin is 0.027. Will repeat second troponin. Urinalysis is unremarkable. Influenza test is negative. Patient has chronic changes and microvascular ischemia noted. According to the radiologist, there is a possible basilar tip aneurysm. We will send the discussed these results with Dr. Hollingsworth. We will send the patient for CTA of the head. 11/27/19 13:40 Patient was given Versed, and she did not stay still for the CTA of the head. Paged Dr. Hollingsworth back. 11/27/19 14:20 IWas able to speak with Dr. Hollingsworth, who is on-call for Dr. Mccurdy. Patient will be admitted to the telemetry floor. 11/27/19 14:20 - Vital Signs Vital signs: Temp Pulse Resp BP Pulse Ox 98 F 83 11 L 163/88 H 98 11/27/19 12:00 11/27/19 07:51 11/27/19 12:31 11/27/19 12:31 11/27/19 12:31 - Laboratory Result Diagrams: 11/27/19 07:39 11/27/19 07:39 Laboratory results interpreted by me: 11/27/19 11/27/19 07:39 08:18 Carbon Dioxide 34 H Glucose 183 H Creatine Kinase 25 L Urine Protein 100 H Urine Urobilinogen 2.0 H Discharge - Discharge Clinical Impression: Syncope Qualifiers: Syncope type: unspecified Qualified Code(s): R55 - Syncope and collapse Diarrhea Qualifiers: Diarrhea type: unspecified type Qualified Code(s): R19.7 - Diarrhea, unspecified Condition: Stable Disposition: ADMITTED INPATIENT Admitting Provider: Genny Unit Admitted: Telemetry Referrals: JONATHAN MCCURDY MD [Primary Care Provider] - Follow up as needed
[2019-11-27] MEDS ORDERED: NORMAL SALINE 1000 ML 1,000 ML IV ONE (10:32)
--- NOTE | 2019-11-27 10:56 | RADIOLOGY REPORT (SQ) ---
EXAM DESCRIPTION: CHEST SINGLE VIEW COMPLETED DATE/TIME: 11/27/2019 10:30 am REASON FOR STUDY: syncope COMPARISON: 01/10/2019 EXAM PARAMETERS: NUMBER OF VIEWS: One view. TECHNIQUE: Single frontal radiographic view of the chest acquired. RADIATION DOSE: NA LIMITATIONS: None. FINDINGS: LUNGS AND PLEURA: No opacities, masses or pneumothorax. No pleural effusion. MEDIASTINUM AND HILAR STRUCTURES: No masses. Contour normal. HEART AND VASCULAR STRUCTURES: Normal size heart. Marked aortic ectasia. BONES: No acute findings. HARDWARE: None in the chest. OTHER: No other significant finding. IMPRESSION: NO ACUTE RADIOGRAPHIC FINDING IN THE CHEST. TECHNICAL DOCUMENTATION: JOB ID: [id number] 2011 [employer]- All Rights Reserved Reading location - IP/workstation name: [email or web address]
--- NOTE | 2019-11-27 11:15 | RADIOLOGY REPORT (SQ) ---
EXAM DESCRIPTION: CT HEAD WITHOUT COMPLETED DATE/TIME: 11/27/2019 10:51 am REASON FOR STUDY: syncope COMPARISON: MRI 01/11/2019 TECHNIQUE: Axial images acquired through the brain without intravenous contrast. Images reviewed wi th bone, brain and subdural windows. Additional sagittal and coronal reconstructions were generated. Images stored on PACS. All CT scanners at this facility use dose modulation, iterative reconstruction, and/or weight based d osing when appropriate to reduce radiation dose to as low as reasonably achievable (ALARA). [facility]: Dose Right [facility]: CareDose [facility]: Dose Right [facility]: Teradose 4D [facility]: [employer] Technologies RADIATION DOSE: CT Rad equipment meets quality standard of care and radiation dose reduction techniq ues were employed. CTDIvol: 53.2 mGy. DLP: 1097 mGy-cm.mGy. LIMITATIONS: None. FINDINGS: VENTRICLES: Prominent. CEREBRUM: No masses. No hemorrhage. No midline shift. Areas of low density in the white matter mos t likely due to chronic micro-vascular ischemic change. No evidence for acute infarction. CEREBELLUM: No masses. No hemorrhage. No alteration of density. No evidence for acute infarction. EXTRAAXIAL SPACES: Age-related involutional change. No fluid collections. No masses. Prominent bas ilar tip. Possible aneurysm. ORBITS AND GLOBE: No intra- or extraconal masses. Normal contour of globe without masses. CALVARIUM: No fracture. PARANASAL SINUSES: No fluid or mucosal thickening. SOFT TISSUES: No mass or hematoma. OTHER: No other significant finding. IMPRESSION: CHRONIC CHANGES OF ATROPHY AND MICROVASCULAR ISCHEMIA. 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 EVIDENCE OF ACUTE STROKE: NO. COMMENT: Recommend MRA. TECHNICAL DOCUMENTATION: JOB ID: [id number] Quality ID # [id number]: Final reports with documentation of one or more dose reduction techniques (e.g., Au tomated exposure control, adjustment of the mA and/or kV according to patient size, use of iterative reconstruction technique) 2010 [employer]- All Rights Reserved Reading location - IP/workstation name: [email or web address]
[2019-11-27 11:34] LABS: A TYPE INFLUENZA AG NEGATIVE (NEGATIVE); B INFLUENZA AG NEGATIVE (NEGATIVE)
--- NOTE | 2019-11-27 11:55 | EKG REPORT ---
SEVERITY:- ABNORMAL ECG - SINUS WITH APCs AND PVCs VENTRICULAR TRIGEMINY BORDERLINE T ABNORMALITIES, DIFFUSE LEADS : Confirmed by: Chris Del Angel 27-Nov-2019 11:54:04
[2019-11-27] MEDS ORDERED: MIDAZOLAM 2 MG/2 ML INJ IV ONE (12:59)
[2019-11-27] MEDS ORDERED: NORMAL SALINE 1000 ML 1,000 ML IV PRN (15:20)
[2019-11-27] MEDS ORDERED: ACETAMINOPHEN 325 MG TABLET PO PRN (15:20)
[2019-11-27] MEDS ORDERED: DEXTROSE 40% GEL 15 GM TUBE PO PRN ×2 (15:27)
[2019-11-27] MEDS ORDERED: GLUCAGON,HUMAN RECOMB 1 MG INJ IM PRN (15:27)
[2019-11-27] MEDS ORDERED: DEXTROSE 50%-WATER 25 GM/50 ML DISP.SYRIN IV PRN ×2 (15:27)
--- NOTE | 2019-11-27 15:47 | PDOC H&P ---
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 history of the hypertension hyp lipidemia type two diabetes and significant dementia Brought to the emergency department with the patients passing out episode where the patsie dtaughter wash this morning and suddenly patients pass out dont know how long According to the daughter question I have a bowel moment before this and have some loose stool but other than that and any other complaints Patient with significant history of dementia but patient was alert and awake and is pretty much acting normally In the emergency department patient initial work up is all negative including the bloodwork and a CT scan patient underwent for the CT angiogram but unable to do it because of patients moving too much When I saw the patient in the emergency department patient is alert and awake underlying dementia as for the family with a normal state but other than that no other complaints at this stage decided to admit in the hospital for further evaluate for this passing out Past Medical History Cardiac Medical History: Reports: Hypertension Endocrine Medical History: Reports: Diabetes Mellitus Type 2 Musculoskeltal Medical History: Reports: Arthritis Psychiatric Medical History: Reports: Dementia Denies: Depression Past Surgical History Past Surgical History: Reports: Cholecystectomy Social History Information Source: Patient Smoking Status: Never Smoker Frequency of Alcohol Use: None Hx Recreational Drug Use: No Drugs: None Hx Prescription Drug Abuse: No Family History Family History: Reviewed & Not Pertinent Parental Family History Reviewed: Yes Children Family History Reviewed: Yes Sibling(s) Family History Reviewed.: Yes Medication/Allergy Home Medications: Aspirin [Adult Low Dose Aspirin EC] 81 mg PO DAILY 01/11/19 Atorvastatin Calcium [Lipitor 40 mg Tablet] 40 mg PO QHS 01/11/19 Donepezil HCl [Aricept] 10 mg PO QHS 01/11/19 Metformin HCl [Glucophage] 1,000 mg PO BID 01/11/19 Valsartan/Hydrochlorothiazide [Valsartan-Hctz 320-25 mg Tab] 1 each PO DAILY 01/11/19 Gabapentin [Neurontin 300 mg Capsule] 1 cap PO TID 11/27/19 Allergies/Adverse Reactions: No Known Allergies Allergy (Unverified 02/13/15 13:55) Review of Systems ROS unobtainable: Due to mental status Constitutional: ABSENT: chills, fever(s), headache(s), weight gain, weight loss Eyes: ABSENT: visual disturbances Ears: ABSENT: hearing changes Cardiovascular: ABSENT: chest pain, dyspnea on exertion, edema, orthropnea, p alpitations Respiratory: ABSENT: cough, hemoptysis Gastrointestinal: PRESENT: diarrhea. ABSENT: abdominal pain, constipation, hematemesis, hematochezia, nausea, vomiting Genitourinary: ABSENT: dysuria, hematuria Musculoskeletal: ABSENT: joint swelling Integumentary: ABSENT: rash, wounds Neurological: ABSENT: abnormal gait, abnormal speech, confusion, dizziness, focal weakness, syncope Psychiatric: ABSENT: anxiety, depression, homidical ideation, suicidal ideation Endocrine: ABSENT: cold intolerance, heat intolerance, menstrual abnormalities, polydipsia, polyuria Hematologic/Lymphatic: ABSENT: easy bleeding, easy bruising, lymphadenopathy Physical Exam Vital Signs: Temp Pulse Resp BP Pulse Ox 98 F 83 15 171/99 H 100 11/27/19 12:00 11/27/19 07:51 11/27/19 15:00 11/27/19 14:01 11/27/19 15:02 Intake & Output 11/26/19 11/27/19 11/28/19 06:59 06:59 06:59 Intake Total 1000 Balance 1000 Weight 104.9 kg General appearance: PRESENT: no acute distress, well-developed, well-nourished Head exam: PRESENT: atraumatic, normocephalic Eye exam: PRESENT: conjunctiva pink, EOMI, PERRLA. ABSENT: scleral icterus Ear exam: PRESENT: normal external ear exam Mouth exam: PRESENT: moist, tongue midline Neck exam: PRESENT: full ROM. ABSENT: carotid bruit, JVD, lymphadenopathy, thyromegaly Respiratory exam: PRESENT: clear to auscultation chung Cardiovascular exam: PRESENT: RRR. ABSENT: diastolic murmur, rubs, systolic murmur Pulses: PRESENT: normal dorsalis pedis pul, +2 pedal pulses bilateral Vascular exam: PRESENT: normal capillary refill GI/Abdominal exam: PRESENT: normal bowel sounds, soft. ABSENT: distended, guarding, mass, organolmegaly, rebound, tenderness Rectal exam: PRESENT: deferred Neurological exam: PRESENT: alert, awake. ABSENT: motor sensory deficit Psychiatric exam: PRESENT: appropriate affect, normal mood. ABSENT: homicidal ideation, suicidal ideation Skin exam: PRESENT: dry, intact, warm. ABSENT: cyanosis, rash Results Laboratory Results: 11/27/19 07:39 11/27/19 07:39 11/27/19 11/27/19 11/27/19 07:39 07:39 08:18 WBC 6.4 RBC 4.06 Hgb 12.4 Hct 37.0 MCV 91 MCH 30.6 MCHC 33.6 RDW 13.5 Plt Count 199 Seg Neutrophils % 47.3 Sodium 139.0 Potassium 3.8 Chloride 100 Carbon Dioxide 34 H Anion Gap 5 BUN 15 Creatinine 0.83 Est GFR ( Amer) > 60 Glucose 183 H Calcium 9.4 Total Bilirubin 1.1 AST 22 Alkaline Phosphatase 67 Total Protein 7.0 Albumin 3.5 Urine Color YELLOW Urine Appearance CLEAR Urine pH 7.0 Ur Specific [place] 1.013 Urine Protein 100 H Urine Glucose (UA) NEGATIVE Urine Ketones NEGATIVE Urine Blood NEGATIVE Urine Nitrite NEGATIVE Ur Leukocyte Esterase NEGATIVE Urine WBC (Auto) 3 Urine RBC (Auto) 4 11/27/19 11/27/19 11/27/19 07:39 07:39 11:00 Creatine Kinase 25 L CK-MB (CK-2) 1.06 Troponin I 0.027 0.015 Impressions: Head CT 11/27/19 09:51 IMPRESSION: CHRONIC CHANGES OF ATROPHY AND MICROVASCULAR ISCHEMIA. 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 EVIDENCE OF ACUTE STROKE: NO. Chest X-Ray 11/27/19 09:52 IMPRESSION: NO ACUTE RADIOGRAPHIC FINDING IN THE CHEST. Assessment & Plan - Diagnosis (1) Syncope Qualifiers: Syncope type: unspecified Qualified Code(s): R55 - Syncope and collapse Is this a current diagnosis for this admission?: Yes Plan: un clear ideology possible vasovagal syncope episode will admit the patient to further evaluate (2) Diarrhea Qualifiers: Diarrhea type: unspecified type Qualified Code(s): R19.7 - Diarrhea, unspecified Is this a current diagnosis for this admission?: Yes Plan: Will get the stool culture W BC in the c diff and order the CT abdomen pelvis (3) Dementia Qualifiers: Dementia type: Alzheimer's disease Dementia behavioral disturbance: with behavioral disturbance Is this a current diagnosis for this admission?: Yes (4) T2DM (type 2 diabetes mellitus) Qualifiers: Diabetes mellitus snf insulin use: without termite control technician use Is this a current diagnosis for this admission?: Yes Plan: hold metformin cont ss with om prtocol - Time Time Spent: 30 to 50 Minutes Medications reviewed and adjusted accordingly: Yes Anticipated discharge: Home Within: Other - Inpatient Certification Based on my medical assessment, after consideration of the patient's comorbidities, presenting symptoms, or acuity I expect that the services needed warrant INPATIENT care.: Yes I certify that my determination is in accordance with my understanding of Medicare's requirements for reasonable and necessary INPATIENT services [42 CFR 412.3e].: Yes Medical Necessity: Need For Continuous Telemetry Monitoring Post Hospital Care: D/C Provider Enrollment Specialist Documentation - Plan Summary Plan Summary: Admin depression in tele to further evaluate discuss with the patient family in the emergency department Patient CT of the head shows no stoke but mild anursem but not clear and order cta but patient unable to stand still in the ct scan even guve sedation will try later order echo/carotid doppler monitor
[2019-11-27] MEDS: INSULIN LISPRO 100 UNIT/ML 3 ML VIAL SUBCUT SCH ×2 (18:17→22:25)
[2019-11-27] MEDS ORDERED: OXYCODONE HCL IR 5 MG TABLET PO ONE (22:00)
[2019-11-27] MEDS ORDERED: (PENDING PHARMACY ID) (Donepezil Hcl [Aricept] 10 MG) PO SCH (22:00)
[2019-11-27] MEDS: GABAPENTIN 300 MG CAPSULE PO SCH (22:31)
[2019-11-27] MEDS: ATORVASTATIN CALCIUM 40 MG TABLET PO SCH (22:31)
[2019-11-27] MEDS: FAMOTIDINE 20 MG TABLET PO SCH (22:31)
[2019-11-27] MEDS ORDERED: INFLUENZA QUAD (6MOS+) 2019-20 VAC 0.5 ML SYR IM ONE (22:55)
[2019-11-28] MEDS: GABAPENTIN 300 MG CAPSULE PO SCH ×3 (05:02→22:09)
[2019-11-28 06:00] LABS: ABSOLUTE EOSINOPHILS # (AUTO) 0.2 10^3/uL (0.0-0.6); ABSOLUTE LYMPHOCYTES (AUTO) 1.9 10^3/uL (0.5-4.7); ABSOLUTE MONOCYTES (AUTO) 0.6 10^3/uL (0.1-1.4); ABSOLUTE NEUT (AUTO) 2.7 10^3/uL (1.7-8.2); BASOPHILS % (AUTO) 0.8 % (0-2); EOSINOPHILS % (AUTO) 3.4 % (0-6); LYMPHOCYTES % (AUTO) 34.3 % (13-45); MEAN CORPUSCULAR HEMOGLOBIN 30.3 pg (27.0-33.4); MEAN CORPUSCULAR HGB CONC 33.3 g/dL (32.0-36.0); MEAN CORPUSCULAR VOLUME 91 fl (80-97); MONOCYTES % (AUTO) 11.2 % (3-13); PLATELET COUNT 179 10^3/uL (150-450); RED BLOOD COUNT 3.95 10^6/uL (3.72-5.28); RED CELL DISTRIBUTION WIDTH 13.5 % (11.5-14.0); SEGMENTED NEUTROPHILS % (AUTO) 50.3 % (42-78); TOTAL CELLS COUNTED % (AUTO) 100 %; WHITE BLOOD COUNT 5.5 10^3/uL (4.0-10.5)
[2019-11-28 06:24] LABS: ALBUMIN 3.2 g/dL (3.5-5.0); ALKALINE PHOSPHATASE 61 U/L (38-126); ANION GAP 6 (5-19); ASPARTATE AMINO TRANSFERASE 27 U/L (14-36); BILIRUBIN,DIRECT 0.2 mg/dL (0.0-0.4); BILIRUBIN,TOTAL 1.5 mg/dL (0.2-1.3); BLOOD UREA NITROGEN 12 mg/dL (7-20); CALCIUM 9.3 mg/dL (8.4-10.2); CARBON DIOXIDE 29 mmol/L (22-30); CHLORIDE 106 mmol/L (98-107); GLUCOSE 123 mg/dL (75-110); POTASSIUM 3.5 mmol/L (3.6-5.0); TOTAL PROTEIN 6.6 g/dL (6.3-8.2)
[2019-11-28 06:30] LABS: CREATINE KINASE MB 1.17 ng/mL (<4.55); TROPONIN I 0.027 ng/mL
[2019-11-28] MEDS: INSULIN LISPRO 100 UNIT/ML 3 ML VIAL SUBCUT SCH ×4 (07:30→22:09)
[2019-11-28] MEDS: FAMOTIDINE 20 MG TABLET PO SCH ×2 (09:32→22:09)
[2019-11-28] MEDS: VALSARTAN 160 MG TABLET PO SCH (09:32)
[2019-11-28] MEDS: ASPIRIN 81 MG TABLET, ENT COATED PO SCH (09:32)
[2019-11-28] MEDS: ENOXAPARIN SODIUM INJ 40 MG/0.4 ML DISP.SYRIN SUBCUT SCH (09:32)
[2019-11-28] MEDS: HYDROCHLOROTHIAZIDE 25 MG TABLET PO SCH (09:32)
[2019-11-28] MEDS ORDERED: (PENDING PHARMACY ID) (Valsartan/Hydrochlorothiazide [Valsartan-Hctz 320-25 Mg Tab] 1 EACH PO SCH (10:00)
[2019-11-28 11:26] LABS: APPEARANCE,URINE CLEAR; BILIRUBIN,URINE NEGATIVE (NEGATIVE); COLOR,URINE YELLOW; GLUCOSE, URINE NEGATIVE (NEGATIVE); KETONES,URINE NEGATIVE (NEGATIVE); LEUKOCYTE ESTERASE,URINE NEGATIVE (NEGATIVE); NITRITE,URINE NEGATIVE (NEGATIVE); PROTEIN,URINE 30 mg/dL (NEGATIVE)
--- NOTE | 2019-11-28 13:26 | RADIOLOGY REPORT (SQ) ---
EXAM DESCRIPTION: CAROTID DOPPLER COMPLETED DATE/TIME: 11/28/2019 12:25 pm REASON FOR STUDY: Syncopal episode COMPARISON: None. TECHNIQUE: Grayscale ultrasound, Doppler velocity and spectra, and color Doppler images acquired of the extra-cranial carotid and vertebral arteries. Images stored on PACS. LIMITATIONS: None. FINDINGS: RIGHT CAROTID CCA Velocities: Within normal limits. ICA Velocities Peak systolic 37 cm/s. End diastolic 8 cm/s. Proximal ICA/CCA peak systolic ratio 0.9. The some soft plaque in the carotid bulb and proximal ICA. LEFT CAROTID CCA Velocities: Within normal limits. ICA Velocities Peak systolic 57 cm/s. End diastolic 12 cm/s. Proximal ICA/CCA peak systolic ratio 1.3. There is some soft plaque in the carotid bulb and proximal ICA. VERTEBRAL ARTERIES: Antegrade flow. Normal waveforms. SUBCLAVIAN ARTERIES: No finding. OTHER: No other significant finding. IMPRESSION: NO HEMODYNAMICALLY SIGNIFICANT STENOSIS. COMMENT: Quality ID #[id number]: Velocity criteria are extrapolated from the diameter data as defined by t he Society of Radiologists in Ultrasound Consensus Conference. Radiology 2003: 229; 340-346. TECHNICAL DOCUMENTATION: JOB ID: [id number] 2010 [employer]- All Rights Reserved Reading location - IP/workstation name: [email or web address]
[2019-11-28] MEDS: ATORVASTATIN CALCIUM 40 MG TABLET PO SCH (22:09)
--- NOTE | 2019-11-28 22:15 | PDOC PROGRESS REPORT ---
Subjective Progress Note for:: 11/28/19 Subjective:: Patient was admitted yesterday for evaluation of loss of consciousness/syncope CT head without contrast was obtained, it demonstrated possible basilar aneurysm. It is to be noted that patient's sister from ruptured basilar aneurysm Reason For Visit: SYNCOPAL EPISODE Physical Exam Vital Signs: Temp Pulse Resp BP Pulse Ox 97.5 F 120 H 18 141/107 H 98 11/28/19 16:14 11/28/19 19:00 11/28/19 16:14 11/28/19 16:14 11/28/19 16:14 Intake & Output 11/27/19 11/28/19 11/29/19 06:59 06:59 06:59 Intake Total 1000 1740 Output Total 1050 Balance -50 1740 Weight 100.7 kg General appearance: PRESENT: no acute distress Eye exam: PRESENT: PERRLA Respiratory exam: PRESENT: clear to auscultation chung Cardiovascular exam: PRESENT: +S1, +S2 GI/Abdominal exam: PRESENT: soft Neurological exam: PRESENT: alert Results Laboratory Results: 11/28/19 05:30 11/28/19 05:30 11/28/19 11/28/19 11/28/19 05:30 05:30 10:45 WBC 5.5 RBC 3.95 Hgb 12.0 Hct 36.0 MCV 91 MCH 30.3 MCHC 33.3 RDW 13.5 Plt Count 179 Seg Neutrophils % 50.3 Sodium 141.4 Potassium 3.5 L Chloride 106 Carbon Dioxide 29 Anion Gap 6 BUN 12 Creatinine 0.77 Est GFR ( Amer) > 60 Glucose 123 H Calcium 9.3 Magnesium 1.7 Total Bilirubin 1.5 H AST 27 Alkaline Phosphatase 61 Total Protein 6.6 Albumin 3.2 L Urine Color YELLOW Urine Appearance CLEAR Urine pH 7.0 Ur Specific [place] 1.010 Urine Protein 30 H Urine Glucose (UA) NEGATIVE Urine Ketones NEGATIVE Urine Blood NEGATIVE Urine Nitrite NEGATIVE Ur Leukocyte Esterase NEGATIVE Urine WBC (Auto) 1 Urine RBC (Auto) 1 11/27/19 11/27/19 11/27/19 07:39 07:39 11:00 Creatine Kinase 25 L CK-MB (CK-2) 1.06 Troponin I 0.027 0.015 11/28/19 05:30 Creatine Kinase CK-MB (CK-2) 1.17 Troponin I 0.027 Impressions: Head CT 11/27/19 09:51 IMPRESSION: CHRONIC CHANGES OF ATROPHY AND MICROVASCULAR ISCHEMIA. 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 EVIDENCE OF ACUTE STROKE: NO. Chest X-Ray 11/27/19 09:52 IMPRESSION: NO ACUTE RADIOGRAPHIC FINDING IN THE CHEST. Carotid Doppler Study 11/28/19 00:00 IMPRESSION: NO HEMODYNAMICALLY SIGNIFICANT STENOSIS. Assessment & Plan - Diagnosis (1) Basilar artery aneurysm Is this a current diagnosis for this admission?: Yes Plan: MRA brain ordered (2) Syncope Qualifiers: Syncope type: unspecified Qualified Code(s): R55 - Syncope and collapse Is this a current diagnosis for this admission?: Yes Plan: Order 2D echo - Time Time Spent with patient: 15-24 minutes Level of Care: MEDICAL
[2019-11-29 05:04] LABS: ABSOLUTE BASOPHILS # (AUTO) 0.1 10^3/uL (0.0-0.2); ABSOLUTE EOSINOPHILS # (AUTO) 0.2 10^3/uL (0.0-0.6); ABSOLUTE LYMPHOCYTES (AUTO) 2.2 10^3/uL (0.5-4.7); ABSOLUTE MONOCYTES (AUTO) 0.7 10^3/uL (0.1-1.4); ABSOLUTE NEUT (AUTO) 4.9 10^3/uL (1.7-8.2); BASOPHILS % (AUTO) 0.7 % (0-2); EOSINOPHILS % (AUTO) 2.9 % (0-6); HEMATOCRIT 35.2 % (36.0-47.0); LYMPHOCYTES % (AUTO) 27.2 % (13-45); MEAN CORPUSCULAR HEMOGLOBIN 30.8 pg (27.0-33.4); MEAN CORPUSCULAR HGB CONC 34.2 g/dL (32.0-36.0); MEAN CORPUSCULAR VOLUME 90 fl (80-97); MONOCYTES % (AUTO) 8.2 % (3-13); PLATELET COUNT 183 10^3/uL (150-450); RED BLOOD COUNT 3.91 10^6/uL (3.72-5.28); RED CELL DISTRIBUTION WIDTH 13.4 % (11.5-14.0); TOTAL CELLS COUNTED % (AUTO) 100 %
[2019-11-29] MEDS: GABAPENTIN 300 MG CAPSULE PO SCH ×3 (05:10→22:24)
[2019-11-29] MEDS: INSULIN LISPRO 100 UNIT/ML 3 ML VIAL SUBCUT SCH ×4 (07:20→22:24)
[2019-11-29] MEDS ORDERED: LORAZEPAM 1 MG TABLET PO PRN (08:33)
[2019-11-29] MEDS: FAMOTIDINE 20 MG TABLET PO SCH ×2 (10:04→22:24)
[2019-11-29] MEDS: HYDROCHLOROTHIAZIDE 25 MG TABLET PO SCH (10:04)
[2019-11-29] MEDS: VALSARTAN 160 MG TABLET PO SCH (10:04)
[2019-11-29] MEDS: METFORMIN HCL 500 MG TABLET PO SCH ×2 (10:04→17:29)
[2019-11-29] MEDS: ASPIRIN 81 MG TABLET, ENT COATED PO SCH (10:10)
[2019-11-29] MEDS: ENOXAPARIN SODIUM INJ 40 MG/0.4 ML DISP.SYRIN SUBCUT SCH (10:16)
--- NOTE | 2019-11-29 13:12 | RADIOLOGY REPORT (SQ) ---
EXAM DESCRIPTION: MRA HEAD WITHOUT COMPLETED DATE/TIME: 11/29/2019 11:22 am REASON FOR STUDY: basilar artery aneurysm I67.1 CEREBRAL ANEURYSM, NONRUPTURED R55 SYNCOPE AND COL LAPSE COMPARISON: CT dated 11/27/2021 TECHNIQUE: Axial 3-D [id number] acquisition imaging performed through the brain in the area of t he [place]. Images reformatted using 3-D MIPS. LIMITATIONS: Significant motion artifact. FINDINGS: SOURCE IMAGES: No unexpected findings on source images. No large masses. 3-D MIP: There is generalized diffuse dilation of the basilar artery. A discrete saccular aneurysm i s not visualized. Evaluation is limited due to motion artifact. No occlusions. No significant sten osis. OTHER: No other significant finding. IMPRESSION: STUDY LIMITED BY MOTION ARTIFACT. GENERALIZED DIFFUSE DILATION OF THE BASILAR ARTERY. A DISCRETE SACCULAR ANEURYSM IS NOT VISUALIZED. TECHNICAL DOCUMENTATION: JOB ID: [id number] 2010 [employer]- All Rights Reserved Reading location - IP/workstation name: [email or web address]
--- NOTE | 2019-11-29 17:31 | XCELERA REPORT ---
[address] [address] Transthoracic Echocardiogram Report Name: IVANIAJEANETTE BAUTISTA Age: 74 yrs Gender: Female : 1945 Patient Status: Inpatient Patient Location: [address] [place] [address] Study Date: 11/29/2019 09:44 AM Height: 67 in Weight: 222 lb BSA: 2.1 m2 Procedure: A two-dimensional transthoracic echocardiogram with color flow and Doppler was performed. The study was technically difficult with many images being suboptimal in quality. The study was technically limited with all images being suboptimal in quality. Reason For Study: syncope History: syncope. Ordering Physician: JONATHAN MCUCRDY Performed By: Danielle Schroeder Interpretation Summary The left ventricle is normal in size. There is normal left ventricular wall thickness. Left ventricular systolic function is normal. LV EF is 60% Doppler measurements suggest normal left ventricular diastolic function There is no thrombus. Cannot assess ASD,VSD , or PFO Right atrium not well visualized secondary to technical limitations The left atrial size is normal. There is no evidence of mitral valve prolapse. There is no vegetation seen on the mitral valve. There is no mitral valve stenosis. There is a trace amount of mitral regurgitation There is no aortic valve stenosis There is no tricuspid stenosis. There is a trace amount of tricuspid regurgitation Right ventricular systolic pressure is normal. RVSP is 27 mm of Hg , with RA mean of 10. There is no pulmonic valvular stenosis. There is no pulmonic valvular regurgitation. The aortic root is not well visualized. The inferior vena cava was not visualized There is no pericardial effusion. MMode/2D Measurements & Calculations RVDd: 2.1 cm LVIDd: 2.8 cm FS: 29.9 % Ao root diam: 2.9 cm IVSd: 1.2 cm LVIDs: 2.0 cm EDV(Teich): 29.3 ml Ao root area: 6.6 cm2 LVPWd: 1.1 cm ESV(Teich): 12.0 ml LA dimension: 3.5 cm EF(Teich): 58.9 % Doppler Measurements & Calculations MV E max alessandro: MV P1/2t max alessandro: Ao V2 max: LV V1 max P.2 cm/sec 53.6 cm/sec 164.1 cm/sec 4.6 mmHg MV A max alessandro: MV P1/2t: 57.9 msec Ao max PG: LV V1 max: 77.0 cm/sec MVA(P1/2t): 3.8 cm2 10.8 mmHg 107.1 cm/sec MV E/A: 0.82 MV dec slope: 271.3 cm/sec2 MV dec time: 0.26 sec PA V2 max: TR max alessandro: MV P1/2t-pr_phl: 102.5 cm/sec 206.3 cm/sec 57.9 msec PA max P.2 mmHgTR max P.0 mmHg Left Ventricle The left ventricle is normal in size. There is normal left ventricular wall thickness. Left ventricular systolic function is normal. LV EF is 60%. Doppler measurements suggest normal left ventricular diastolic function. The left ventricular wall motion is normal. There is no thrombus. Cannot assess ASD,VSD , or PFO. Right Ventricle The right ventricle is not well visualized secondary to technical limitations. Atria Right atrium not well visualized secondary to technical limitations. The left atrial size is normal. Mitral Valve There is no evidence of mitral valve prolapse. There is no vegetation seen on the mitral valve. There is no mitral valve stenosis. There is a trace amount of mitral regurgitation. Aortic Valve There is no aortic valve stenosis. No aortic regurgitation is present. Tricuspid Valve There is no tricuspid stenosis. There is a trace amount of tricuspid regurgitation. Right ventricular systolic pressure is normal. RVSP is 27 mm of Hg , with RA mean of 10. Pulmonic Valve There is no pulmonic valvular stenosis. There is no pulmonic valvular regurgitation. Great Vessels The aortic root is not well visualized. The inferior vena cava was not visualized. Effusions There is no pericardial effusion. : JONATHAN MCCURDY Lakshmi
--- NOTE | 2019-11-29 22:05 | PDOC PROGRESS REPORT ---
Subjective Progress Note for:: 11/29/19 Subjective:: Patient seen by the bedside, the MRA Of the brain was reviewed it demonstrated generalized diffuse dilation of the basilar artery no discrete saccular aneurysm was visualized Reason For Visit: SYNCOPAL EPISODE Physical Exam Vital Signs: Temp Pulse Resp BP Pulse Ox 98.3 F 105 H 18 143/97 H 96 11/29/19 20:00 11/29/19 20:00 11/29/19 20:00 11/29/19 20:00 11/29/19 20:00 Intake & Output 11/28/19 11/29/19 11/30/19 06:59 06:59 06:59 Intake Total 1000 1840 565 Output Total 1050 Balance -50 1840 565 Weight 100.7 kg 101.4 kg General appearance: PRESENT: no acute distress Eye exam: PRESENT: PERRLA Respiratory exam: PRESENT: clear to auscultation chung Cardiovascular exam: PRESENT: +S1, +S2 GI/Abdominal exam: PRESENT: soft Neurological exam: PRESENT: alert Results Laboratory Results: 11/29/19 04:44 11/28/19 05:30 11/29/19 04:44 WBC 8.0 RBC 3.91 Hgb 12.0 Hct 35.2 L MCV 90 MCH 30.8 MCHC 34.2 RDW 13.4 Plt Count 183 Seg Neutrophils % 61.0 11/27/19 16:14 Blood Blood Culture (PCR) - Final Staphylococcus Species 11/27/19 11/27/19 11/27/19 07:39 07:39 11:00 Creatine Kinase 25 L CK-MB (CK-2) 1.06 Troponin I 0.027 0.015 11/28/19 05:30 Creatine Kinase CK-MB (CK-2) 1.17 Troponin I 0.027 Impressions: Head CT 11/27/19 09:51 IMPRESSION: CHRONIC CHANGES OF ATROPHY AND MICROVASCULAR ISCHEMIA. 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 EVIDENCE OF ACUTE STROKE: NO. Chest X-Ray 11/27/19 09:52 IMPRESSION: NO ACUTE RADIOGRAPHIC FINDING IN THE CHEST. Carotid Doppler Study 11/28/19 00:00 IMPRESSION: NO HEMODYNAMICALLY SIGNIFICANT STENOSIS. Brain MRI with MRA 11/29/19 00:00 IMPRESSION: STUDY LIMITED BY MOTION ARTIFACT. GENERALIZED DIFFUSE DILATION OF THE BASILAR ARTERY. A DISCRETE SACCULAR ANEURYSM IS NOT VISUALIZED. Assessment & Plan - Diagnosis (1) Basilar artery aneurysm Is this a current diagnosis for this admission?: Yes (2) Syncope Qualifiers: Syncope type: unspecified Qualified Code(s): R55 - Syncope and collapse Is this a current diagnosis for this admission?: Yes (3) Dementia Qualifiers: Dementia type: Alzheimer's disease Dementia behavioral disturbance: with behavioral disturbance Is this a current diagnosis for this admission?: Yes (4) T2DM (type 2 diabetes mellitus) Qualifiers: Diabetes mellitus skilled nursing insulin use: without watermelon harvesting supervisor use Diabetes mellitus complication status: with neurologic complications Diabetes mellitus complication detail: with polyneuropathy Qualified Code(s): E11.42 - Type 2 diabetes mellitus with diabetic polyneuropathy Is this a current diagnosis for this admission?: Yes - Time Time Spent with patient: 25-34 minutes Level of Care: MEDICAL
[2019-11-29] MEDS: DONEPEZIL HCL 5 MG TABLET PO SCH (22:24)
[2019-11-29] MEDS: ATORVASTATIN CALCIUM 40 MG TABLET PO SCH (22:24)
[2019-11-30] MEDS: GABAPENTIN 300 MG CAPSULE PO SCH ×3 (05:11→21:43)
[2019-11-30 05:12] LABS: ABSOLUTE EOSINOPHILS # (AUTO) 0.3 10^3/uL (0.0-0.6); ABSOLUTE LYMPHOCYTES (AUTO) 2.3 10^3/uL (0.5-4.7); ABSOLUTE MONOCYTES (AUTO) 0.5 10^3/uL (0.1-1.4); ABSOLUTE NEUT (AUTO) 3.5 10^3/uL (1.7-8.2); BASOPHILS % (AUTO) 0.5 % (0-2); EOSINOPHILS % (AUTO) 4.3 % (0-6); HEMATOCRIT 35.3 % (36.0-47.0); LYMPHOCYTES % (AUTO) 34.8 % (13-45); MEAN CORPUSCULAR HEMOGLOBIN 30.7 pg (27.0-33.4); MEAN CORPUSCULAR VOLUME 90 fl (80-97); MONOCYTES % (AUTO) 7.8 % (3-13); PLATELET COUNT 182 10^3/uL (150-450); RED BLOOD COUNT 3.91 10^6/uL (3.72-5.28); RED CELL DISTRIBUTION WIDTH 13.6 % (11.5-14.0); SEGMENTED NEUTROPHILS % (AUTO) 52.6 % (42-78); TOTAL CELLS COUNTED % (AUTO) 100 %; WHITE BLOOD COUNT 6.7 10^3/uL (4.0-10.5)
[2019-11-30] MEDS: INSULIN LISPRO 100 UNIT/ML 3 ML VIAL SUBCUT SCH ×3 (07:05→16:43)
[2019-11-30] MEDS ORDERED: DILTIAZEM HCL/D5W 125 MG/125 ML RTUINJ IV PRN (08:36)
[2019-11-30] MEDS: VALSARTAN 160 MG TABLET PO SCH (09:17)
[2019-11-30] MEDS: METFORMIN HCL 500 MG TABLET PO SCH ×2 (09:17→17:16)
[2019-11-30] MEDS: FAMOTIDINE 20 MG TABLET PO SCH ×2 (09:17→21:43)
[2019-11-30] MEDS: HYDROCHLOROTHIAZIDE 25 MG TABLET PO SCH (09:17)
[2019-11-30] MEDS: ASPIRIN 81 MG TABLET, ENT COATED PO SCH (09:21)
[2019-11-30] MEDS: ENOXAPARIN SODIUM INJ 40 MG/0.4 ML DISP.SYRIN SUBCUT SCH (09:22)
[2019-11-30] MEDS ORDERED: DILTIAZEM HCL INJ 25 MG/5 ML VIAL IV ONE (10:15)
--- NOTE | 2019-11-30 17:26 | EKG REPORT ---
SEVERITY:- ABNORMAL ECG - ATRIAL FIBRILLATION, V-RATE 103-176 REPOLARIZATION ABNORMALITY, PROB RATE RELATED BORDERLINE PROLONGED QT INTERVAL : Confirmed by: Shelby Garzon MD 30-Nov-2019 17:25:30
--- NOTE | 2019-11-30 18:07 | PDOC PROGRESS REPORT ---
Subjective Progress Note for:: 11/30/19 Subjective:: Patient developed paroxysmal atrial fibrillation with rapid regular response Reason For Visit: NEW ONSET AFIB Physical Exam Vital Signs: Temp Pulse Resp BP Pulse Ox 98.1 F 97 18 141/87 H 95 11/30/19 15:05 11/30/19 15:05 11/30/19 15:05 11/30/19 15:05 11/30/19 15:05 Intake & Output 11/29/19 11/30/19 12/01/19 06:59 06:59 06:59 Intake Total 1840 765 300 Balance 1840 765 300 Weight 101.4 kg 98.1 kg General appearance: PRESENT: no acute distress Eye exam: PRESENT: PERRLA Respiratory exam: PRESENT: clear to auscultation chung Cardiovascular exam: PRESENT: +S1, +S2 GI/Abdominal exam: PRESENT: soft Results Laboratory Results: 11/30/19 04:53 11/28/19 05:30 11/30/19 04:53 WBC 6.7 RBC 3.91 Hgb 12.0 Hct 35.3 L MCV 90 MCH 30.7 MCHC 34.0 RDW 13.6 Plt Count 182 Seg Neutrophils % 52.6 11/27/19 16:14 Blood Blood Culture (PCR) - Final Staphylococcus Species 11/28/19 10:45 Catheterized Urine Urine Culture - Final NO GROWTH 2 DAYS 11/27/19 11/27/19 11/27/19 07:39 07:39 11:00 Creatine Kinase 25 L CK-MB (CK-2) 1.06 Troponin I 0.027 0.015 11/28/19 05:30 Creatine Kinase CK-MB (CK-2) 1.17 Troponin I 0.027 Impressions: Head CT 11/27/19 09:51 IMPRESSION: CHRONIC CHANGES OF ATROPHY AND MICROVASCULAR ISCHEMIA. 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 EVIDENCE OF ACUTE STROKE: NO. Chest X-Ray 11/27/19 09:52 IMPRESSION: NO ACUTE RADIOGRAPHIC FINDING IN THE CHEST. Carotid Doppler Study 11/28/19 00:00 IMPRESSION: NO HEMODYNAMICALLY SIGNIFICANT STENOSIS. Brain MRI with MRA 11/29/19 00:00 IMPRESSION: STUDY LIMITED BY MOTION ARTIFACT. GENERALIZED DIFFUSE DILATION OF THE BASILAR ARTERY. A DISCRETE SACCULAR ANEURYSM IS NOT VISUALIZED. Assessment & Plan - Diagnosis (1) Syncope Qualifiers: Syncope type: unspecified Qualified Code(s): R55 - Syncope and collapse Is this a current diagnosis for this admission?: Yes (2) Dementia Qualifiers: Dementia type: Alzheimer's disease Dementia behavioral disturbance: with behavioral disturbance Is this a current diagnosis for this admission?: Yes (3) T2DM (type 2 diabetes mellitus) Qualifiers: Diabetes mellitus terminal gauger insulin use: without fpc use Diabetes mellitus complication status: with neurologic complications Diabetes mellitus complication detail: with polyneuropathy Qualified Code(s): E11.42 - Type 2 diabetes mellitus with diabetic polyneuropathy Is this a current diagnosis for this admission?: Yes (4) Ectasia of artery Is this a current diagnosis for this admission?: Yes (5) Paroxysmal A-fib Is this a current diagnosis for this admission?: Yes Plan: Patient developed paroxysmal atrial fibrillation with RVR, she received a bolus of Cardizem presently rate controlled transfer to [facility], she will need anticoagulant,CHADS2 score is 2 , she has diabetes, hypertension , Patient with dementia benefit versus risk ratio tilt to more risk than benefit - Time Time Spent with patient: 35 or more minutes Level of Care: [facility]
[2019-11-30] MEDS: METOPROLOL TARTRATE 50 MG TABLET PO SCH (18:43)
[2019-11-30] MEDS: ATORVASTATIN CALCIUM 40 MG TABLET PO SCH (21:43)
[2019-11-30] MEDS: DONEPEZIL HCL 5 MG TABLET PO SCH (21:43)
[2019-12-01] MEDS: INSULIN LISPRO 100 UNIT/ML 3 ML VIAL SUBCUT SCH ×4 (00:12→17:19)
[2019-12-01] MEDS: GABAPENTIN 300 MG CAPSULE PO SCH ×3 (05:57→22:16)
[2019-12-01] MEDS: METOPROLOL TARTRATE 50 MG TABLET PO SCH ×2 (05:57→17:48)
[2019-12-01] MEDS: FAMOTIDINE 20 MG TABLET PO SCH ×2 (10:14→22:16)
[2019-12-01] MEDS: ASPIRIN 81 MG TABLET, ENT COATED PO SCH (10:14)
[2019-12-01] MEDS: HYDROCHLOROTHIAZIDE 25 MG TABLET PO SCH (10:14)
[2019-12-01] MEDS: VALSARTAN 160 MG TABLET PO SCH (10:14)
[2019-12-01] MEDS: METFORMIN HCL 500 MG TABLET PO SCH ×2 (10:14→17:48)
[2019-12-01] MEDS: ENOXAPARIN SODIUM INJ 40 MG/0.4 ML DISP.SYRIN SUBCUT SCH (10:15)
--- NOTE | 2019-12-01 20:47 | PDOC PROGRESS REPORT ---
Subjective Progress Note for:: 12/01/19 Subjective:: Patient seen by the bedside, the blood culture was positive for coagulase- negative staph in 1 bottle this is most likely contamination, patient will be discharged home tomorrow Reason For Visit: NEW ONSET AFIB Physical Exam Vital Signs: Temp Pulse Resp BP Pulse Ox 98.0 F 82 18 132/75 H 95 12/01/19 11:29 12/01/19 14:00 12/01/19 11:29 12/01/19 11:29 12/01/19 11:29 Intake & Output 11/30/19 12/01/19 12/02/19 06:59 06:59 06:59 Intake Total 765 800 975 Balance 765 800 975 Weight 98.1 kg 100.3 kg General appearance: PRESENT: no acute distress Eye exam: PRESENT: PERRLA Respiratory exam: PRESENT: clear to auscultation chung Cardiovascular exam: PRESENT: +S1, +S2 GI/Abdominal exam: PRESENT: soft Neurological exam: PRESENT: alert Results Laboratory Results: 11/30/19 04:53 11/28/19 05:30 11/27/19 16:14 Blood Blood Culture (PCR) - Final Staphylococcus Species 11/27/19 11/27/19 11/27/19 07:39 07:39 11:00 Creatine Kinase 25 L CK-MB (CK-2) 1.06 Troponin I 0.027 0.015 11/28/19 05:30 Creatine Kinase CK-MB (CK-2) 1.17 Troponin I 0.027 Impressions: Head CT 11/27/19 09:51 IMPRESSION: CHRONIC CHANGES OF ATROPHY AND MICROVASCULAR ISCHEMIA. 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 EVIDENCE OF ACUTE STROKE: NO. Chest X-Ray 11/27/19 09:52 IMPRESSION: NO ACUTE RADIOGRAPHIC FINDING IN THE CHEST. Carotid Doppler Study 11/28/19 00:00 IMPRESSION: NO HEMODYNAMICALLY SIGNIFICANT STENOSIS. Brain MRI with MRA 11/29/19 00:00 IMPRESSION: STUDY LIMITED BY MOTION ARTIFACT. GENERALIZED DIFFUSE DILATION OF THE BASILAR ARTERY. A DISCRETE SACCULAR ANEURYSM IS NOT VISUALIZED. Assessment & Plan - Diagnosis (1) Syncope Qualifiers: Syncope type: unspecified Qualified Code(s): R55 - Syncope and collapse Is this a current diagnosis for this admission?: Yes (2) Dementia Qualifiers: Dementia type: Alzheimer's disease Dementia behavioral disturbance: with be havioral disturbance Is this a current diagnosis for this admission?: Yes (3) T2DM (type 2 diabetes mellitus) Qualifiers: Diabetes mellitus correction insulin use: without rodent exterminator use Diabetes mellitus complication status: with neurologic complications Diabetes mellitus complication detail: with polyneuropathy Qualified Code(s): E11.42 - Type 2 diabetes mellitus with diabetic polyneuropathy Is this a current diagnosis for this admission?: Yes (4) Ectasia of artery Is this a current diagnosis for this admission?: Yes (5) Paroxysmal A-fib Is this a current diagnosis for this admission?: Yes Plan: Start Eliquis - Time Time Spent with patient: 25-34 minutes Level of Care: [facility]
--- NOTE | 2019-12-01 20:55 | PDOC DISCHARGE SUMMARY ---
Impression - Admit/DC Date/PCP Admission Date/Primary Care Provider: 11/27/19 14:54 JONATHAN MCCURDY MD Discharge Date: 12/02/19 - Discharge Diagnosis (1) Syncope Is this a current diagnosis for this admission?: Yes (2) Dementia Is this a current diagnosis for this admission?: Yes (3) T2DM (type 2 diabetes mellitus) Is this a current diagnosis for this admission?: Yes (4) Ectasia of artery Is this a current diagnosis for this admission?: Yes (5) Paroxysmal A-fib Is this a current diagnosis for this admission?: Yes - Additional Information Referrals: JONATHAN MCCURDY MD [Primary Care Provider] - 12/12/19 3:00 pm Prescriptions: RX: Apixaban [Eliquis 5 mg Tablet] 5 mg PO BID #60 tablet RX: Metoprolol Tartrate [Lopressor 50 mg Tablet] 50 mg PO Q12A #180 tablet Home Medications: RX: Atorvastatin Calcium [Lipitor 40 mg Tablet] 40 mg PO QHS 01/11/19 RX: Donepezil HCl [Aricept] 10 mg PO QHS 01/11/19 RX: Metformin HCl [Glucophage] 1,000 mg PO BID 01/11/19 RX: Valsartan/Hydrochlorothiazide [Valsartan-Hctz 320-25 mg Tab] 1 each PO DAILY 01/11/19 RX: Gabapentin [Neurontin 300 mg Capsule] 1 cap PO TID 11/27/19 RX: Acetaminophen [Tylenol 325 mg Tablet] 650 mg PO Q4HP PRN tablet 12/01/19 RX: Apixaban [Eliquis 5 mg Tablet] 5 mg PO BID #60 tablet 12/01/19 RX: Metoprolol Tartrate [Lopressor 50 mg Tablet] 50 mg PO Q12A #180 tablet 12/01/19 History of Present Illiness History of Present Illness: JEANETTE REDD is a 74 year old female, She presented to the emergency room for evaluation of transient loss of consciousness Hospital Course Hospital Course: Patient was admitted for the management of syncope, she was initially admitted for observation, when she presented to the emergency room a CAT scan of the head was done, the CAT scan suggests aneurysm of the basilar artery, because of this suspicion on CT head and the fact that she has a strong family history her sister also from ruptured aneurysm of the basilar artery MRA of the brain was obtained, it demonstrated uniform dilatation of the basilar artery there was no specific saccular aneurysm identified on the MRA.Hospital course was complicated with episode of paroxysmal atrial fibrillation, she was transferred from medical floor to stepdown unit, [facility] for close monitoring a 2D echo was obtained initially for evaluation of syncope, 2D echo demonstrated preserved ejection fraction of left ventricle the left atrium was not dilated. Based on the chadS2 score of 2 she needs anticoagulation she was started on Eliquis on this admission she has underlying dementia Physical Exam Vital Signs: Temp Pulse Resp BP Pulse Ox 98.0 F 82 18 132/75 H 95 12/01/19 11:29 12/01/19 14:00 12/01/19 11:29 12/01/19 11:29 12/01/19 11:29 Intake & Output 11/30/19 12/01/19 12/02/19 06:59 06:59 06:59 Intake Total 765 800 975 Balance 765 800 975 Weight 98.1 kg 100.3 kg General appearance: PRESENT: no acute distress Eye exam: PRESENT: PERRLA Respiratory exam: PRESENT: clear to auscultation chung Cardiovascular exam: PRESENT: +S1, +S2 GI/Abdominal exam: PRESENT: soft Neurological exam: PRESENT: alert Results Laboratory Results: WBC 6.7 10^3/uL (4.0-10.5) 11/30/19 04:53 RBC 3.91 10^6/uL (3.72-5.28) 11/30/19 04:53 Hgb 12.0 g/dL (12.0-15.5) 11/30/19 04:53 Hct 35.3 % (36.0-47.0) L 11/30/19 04:53 MCV 90 fl (80-97) 11/30/19 04:53 MCH 30.7 pg (27.0-33.4) 11/30/19 04:53 MCHC 34.0 g/dL (32.0-36.0) 11/30/19 04:53 RDW 13.6 % (11.5-14.0) 11/30/19 04:53 Plt Count 182 10^3/uL (150-450) 11/30/19 04:53 Lymph % (Auto) 34.8 % (13-45) 11/30/19 04:53 [place] % (Auto) 7.8 % (3-13) 11/30/19 04:53 Eos % (Auto) 4.3 % (0-6) 11/30/19 04:53 Baso % (Auto) 0.5 % (0-2) 11/30/19 04:53 Absolute Neuts (auto) 3.5 10^3/uL (1.7-8.2) 11/30/19 04:53 Absolute Lymphs (auto) 2.3 10^3/uL (0.5-4.7) 11/30/19 04:53 Absolute Monos (auto) 0.5 10^3/uL (0.1-1.4) 11/30/19 04:53 Absolute Eos (auto) 0.3 10^3/uL (0.0-0.6) 11/30/19 04:53 Absolute Basos (auto) 0.0 10^3/uL (0.0-0.2) 11/30/19 04:53 Seg Neutrophils % 52.6 % (42-78) 11/30/19 04:53 Sodium 141.4 mmol/L (137-145) 11/28/19 05:30 Potassium 3.5 mmol/L (3.6-5.0) L 11/28/19 05:30 Chloride 106 mmol/L (98-107) 11/28/19 05:30 Carbon Dioxide 29 mmol/L (22-30) 11/28/19 05:30 Anion Gap 6 (5-19) 11/28/19 05:30 BUN 12 mg/dL (7-20) 11/28/19 05:30 Creatinine 0.77 mg/dL (0.52-1.25) 11/28/19 05:30 Est GFR ( Amer) > 60 (>60) 11/28/19 05:30 Est GFR (MDRD) Non-Af > 60 (>60) 11/28/19 05:30 Glucose 123 mg/dL (75-110) H 11/28/19 05:30 POC Glucose 113 mg/dL (70-110) H 12/01/19 17:11 Calcium 9.3 mg/dL (8.4-10.2) 11/28/19 05:30 Magnesium 1.7 mg/dL (1.6-2.3) 11/28/19 05:30 Total Bilirubin 1.5 mg/dL (0.2-1.3) H 11/28/19 05:30 Direct Bilirubin 0.2 mg/dL (0.0-0.4) 11/28/19 05:30 Neonat Total Bilirubin Not Reportable 11/28/19 05:30 Neonat Direct Bilirubin Not Reportable 11/28/19 05:30 Neonat Indirect Bili Not Reportable 11/28/19 05:30 AST 27 U/L (14-36) 11/28/19 05:30 ALT 11 U/L (<35) 11/28/19 05:30 Alkaline Phosphatase 61 U/L (38-126) 11/28/19 05:30 Creatine Kinase 25 U/L (30-135) L 11/27/19 07:39 CK-MB (CK-2) 1.17 ng/mL (<4.55) 11/28/19 05:30 Troponin I 0.027 ng/mL 11/28/19 05:30 Total Protein 6.6 g/dL (6.3-8.2) 11/28/19 05:30 Albumin 3.2 g/dL (3.5-5.0) L 11/28/19 05:30 Urine Color YELLOW 11/28/19 10:45 Urine Appearance CLEAR 11/28/19 10:45 Urine pH 7.0 (5.0-9.0) 11/28/19 10:45 Ur Specific [place] 1.010 11/28/19 10:45 Urine Protein 30 mg/dL (NEGATIVE) H 11/28/19 10:45 Urine Glucose (UA) NEGATIVE mg/dL (NEGATIVE) 11/28/19 10:45 Urine Ketones NEGATIVE mg/dL (NEGATIVE) 11/28/19 10:45 Urine Blood NEGATIVE (NEGATIVE) 11/28/19 10:45 Urine Nitrite NEGATIVE (NEGATIVE) 11/28/19 10:45 Urine Bilirubin NEGATIVE (NEGATIVE) 11/28/19 10:45 Urine Urobilinogen 2.0 mg/dL (<2.0) H 11/28/19 10:45 Ur Leukocyte Esterase NEGATIVE (NEGATIVE) 11/28/19 10:45 Urine WBC (Auto) 1 /HPF 11/28/19 10:45 Urine RBC (Auto) 1 /HPF 11/28/19 10:45 Urine Bacteria (Auto) TRACE /HPF 11/27/19 08:18 Squamous Epi Cells Auto <1 /HPF 11/27/19 08:18 Urine Mucus (Auto) RARE /LPF 11/28/19 10:45 Urine Ascorbic Acid NEGATIVE (NEGATIVE) 11/28/19 10:45 Influenza A (Rapid) NEGATIVE (NEGATIVE) 11/27/19 11:00 Influenza B (Rapid) NEGATIVE (NEGATIVE) 11/27/19 11:00 11/27/19 11/27/19 11/28/19 07:39 11:00 05:30 CK-MB (CK-2) 1.06 1.17 Troponin I 0.027 0.015 0.027 Impressions: Head CT 11/27/19 09:51 IMPRESSION: CHRONIC CHANGES OF ATROPHY AND MICROVASCULAR ISCHEMIA. 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 EVIDENCE OF ACUTE STROKE: NO. Chest X-Ray 11/27/19 09:52 IMPRESSION: NO ACUTE RADIOGRAPHIC FINDING IN THE CHEST. Carotid Doppler Study 11/28/19 00:00 IMPRESSION: NO HEMODYNAMICALLY SIGNIFICANT STENOSIS. Brain MRI with MRA 11/29/19 00:00 IMPRESSION: STUDY LIMITED BY MOTION ARTIFACT. GENERALIZED DIFFUSE DILATION OF THE BASILAR ARTERY. A DISCRETE SACCULAR ANEURYSM IS NOT VISUALIZED. Stroke Is this a Stroke Patient?: No Acute Heart Failure - Is this a Heart Failure Patient?: No
[2019-12-01] MEDS: ATORVASTATIN CALCIUM 40 MG TABLET PO SCH (22:16)
[2019-12-01] MEDS: DONEPEZIL HCL 5 MG TABLET PO SCH (22:16)
[2019-12-02] MEDS: INSULIN LISPRO 100 UNIT/ML 3 ML VIAL SUBCUT SCH ×3 (01:07→13:29)
[2019-12-02] MEDS: APIXABAN 5 MG TABLET PO SCH ×2 (01:23→09:12)
[2019-12-02] MEDS: METOPROLOL TARTRATE 50 MG TABLET PO SCH (05:36)
[2019-12-02] MEDS: GABAPENTIN 300 MG CAPSULE PO SCH ×2 (05:36→13:56)
[2019-12-02] MEDS: METFORMIN HCL 500 MG TABLET PO SCH (09:12)
[2019-12-02] MEDS: FAMOTIDINE 20 MG TABLET PO SCH (09:12)
[2019-12-02] MEDS: ASPIRIN 81 MG TABLET, ENT COATED PO SCH (09:12)
[2019-12-02] MEDS: HYDROCHLOROTHIAZIDE 25 MG TABLET PO SCH (09:14)
[2019-12-02] MEDS: VALSARTAN 160 MG TABLET PO SCH (09:14)
[2019-12-02 12:04] VITALS: BP 129/99
--- NOTE | 2019-12-02 14:46 | RADIOLOGY REPORT (SQ) ---
EXAM DESCRIPTION: KUB/ABDOMEN (SINGLE VIEW) COMPLETED DATE/TIME: 12/02/2019 2:23 pm REASON FOR STUDY: vomiting I67.1 CEREBRAL ANEURYSM, NONRUPTURED R55 SYNCOPE AND COLLAPSE COMPARISON: 02/13/2015 NUMBER OF VIEWS: One view. TECHNIQUE: Supine radiographic image of the abdomen acquired. LIMITATIONS: None. FINDINGS: BOWEL GAS PATTERN: Normal bowel gas pattern. No dilated loops. CALCIFICATIONS: No radiopaque stones overlie kidneys. Scattered pelvic calcifications and phlebolith s, stable. SOFT TISSUES: No gross mass or suggestion of organomegaly. HARDWARE: None in the abdomen. BONES: No acute findings. Lower lumbar spondylosis. OTHER: No other significant finding. IMPRESSION: NO RADIOGRAPHIC EVIDENCE FOR ACUTE ABDOMINAL DISEASE. TECHNICAL DOCUMENTATION: JOB ID: [id number] 2010 [employer]- All Rights Reserved Reading location - IP/workstation name: [email or web address]
== END 2019-12-02 17:18 | disposition home health service (06) | DRG 312 ==
LOC: ER 07:32 → INTOOBSV 14:45 → EH 14:45 → OBSVTOIN 14:54 → 4W 21:51 → 3W 11-30 11:56
PROVIDERS: ADMIT Internal Medicine; ATTEND Internal Medicine
PROC: 3E0234Z Introduction of Serum, Toxoid and Vaccine into Muscle, Percutaneous Approach (ICD-10-PCS; principal; 2019-12-02)
DX: R55 Syncope and collapse (principal); F02.81 Dementia in other diseases classified elsewhere, unspecified severity, with behavioral disturbance; I77.819 Aortic ectasia, unspecified site; I48.0 Paroxysmal atrial fibrillation; I10 Essential (primary) hypertension; E78.5 Hyperlipidemia, unspecified; E11.42 Type 2 diabetes mellitus with diabetic polyneuropathy; R19.7 Diarrhea, unspecified; G30.9 Alzheimer's disease, unspecified; Z23 Encounter for immunization; Z79.84 Long term (current) use of oral hypoglycemic drugs; Z79.82 Long term (current) use of aspirin; Z79.899 Other long term (current) drug therapy; Z84.89 Family history of other specified conditions
CPT/HCPCS: 36415; 70450; 70544; 71045; 74018; 80053; 81001; 82550; 82553; 82962; 83735; 84484; 85025; 87040; 87077; 87086; 87150; 87186; 87804; 90686; 93005; 93010; 93306; 93880; 96361; 96374; 99285; G0378; J1650; J1815; J2250; J3490; J7030

== ENCOUNTER 2019-12-03 10:20 | Observation (INO) | payer MEDICARE ==
[2019-12-03 10:48] LABS: INTERNATIONAL RATION (INR) 1.21; PROTHROMBIN TIME 15.4 SEC (11.4-15.4)
[2019-12-03 10:49] LABS: ABSOLUTE LYMPHOCYTES (AUTO) 1.1 10^3/uL (0.5-4.7); ABSOLUTE MONOCYTES (AUTO) 0.7 10^3/uL (0.1-1.4); ABSOLUTE NEUT (AUTO) 7.6 10^3/uL (1.7-8.2); BASOPHILS % (AUTO) 0.4 % (0-2); EOSINOPHILS % (AUTO) 0.2 % (0-6); HEMATOCRIT 38.1 % (36.0-47.0); HEMOGLOBIN 12.8 g/dL (12.0-15.5); LYMPHOCYTES % (AUTO) 11.5 % (13-45); MEAN CORPUSCULAR HEMOGLOBIN 30.3 pg (27.0-33.4); MEAN CORPUSCULAR HGB CONC 33.5 g/dL (32.0-36.0); MEAN CORPUSCULAR VOLUME 90 fl (80-97); MONOCYTES % (AUTO) 7.3 % (3-13); PLATELET COUNT 221 10^3/uL (150-450); RED BLOOD COUNT 4.21 10^6/uL (3.72-5.28); RED CELL DISTRIBUTION WIDTH 13.3 % (11.5-14.0); SEGMENTED NEUTROPHILS % (AUTO) 80.6 % (42-78); TOTAL CELLS COUNTED % (AUTO) 100 %; WHITE BLOOD COUNT 9.5 10^3/uL (4.0-10.5)
[2019-12-03 10:56] LABS: ALBUMIN 3.6 g/dL (3.5-5.0); ALKALINE PHOSPHATASE 70 U/L (38-126); ANION GAP 11 (5-19); ASPARTATE AMINO TRANSFERASE 20 U/L (14-36); BILIRUBIN,DIRECT 0.2 mg/dL (0.0-0.4); BILIRUBIN,TOTAL 1.3 mg/dL (0.2-1.3); BLOOD UREA NITROGEN 19 mg/dL (7-20); CALCIUM 9.7 mg/dL (8.4-10.2); CARBON DIOXIDE 28 mmol/L (22-30); CHLORIDE 99 mmol/L (98-107); GLUCOSE 155 mg/dL (75-110); POTASSIUM 3.6 mmol/L (3.6-5.0); TOTAL PROTEIN 7.6 g/dL (6.3-8.2)
[2019-12-03 11:03] LABS: VENOUS BLOOD BASE EXCESS 1.4 mmol/L; VENOUS BLOOD HCO3 27.1 mmol/L (20-32); VENOUS BLOOD PCO2 47.3 mmHg (35-63); VENOUS BLOOD PH 7.38 (7.30-7.42)
[2019-12-03 11:21] LABS: APPEARANCE,URINE CLEAR; BILIRUBIN,URINE NEGATIVE (NEGATIVE); COLOR,URINE YELLOW; GLUCOSE, URINE NEGATIVE (NEGATIVE); KETONES,URINE NEGATIVE (NEGATIVE); PROTEIN,URINE 100 mg/dL (NEGATIVE); URINE SPECIFIC GRAVITY 1.017
--- NOTE | 2019-12-03 12:19 | RADIOLOGY REPORT (SQ) ---
EXAM DESCRIPTION: CHEST SINGLE VIEW COMPLETED DATE/TIME: 12/03/2019 12:08 pm REASON FOR STUDY: sepsis alert, fever COMPARISON: 11/27/2019. NUMBER OF VIEWS: One view. TECHNIQUE: Single frontal radiographic view of the chest acquired. LIMITATIONS: None. FINDINGS: LUNGS AND PLEURA: No opacities, masses or pneumothorax. No pleural effusion. MEDIASTINUM AND HILAR STRUCTURES: No masses. Contour normal. HEART AND VASCULAR STRUCTURES: Heart enlarged without failure. Normal vasculature. BONES: No acute findings. HARDWARE: None in the chest. OTHER: No other significant finding. IMPRESSION: HEART ENLARGED WITHOUT FAILURE. STABLE APPEARANCE. NO ACUTE RADIOGRAPHIC FINDING IN TH E CHEST. TECHNICAL DOCUMENTATION: JOB ID: [id number] 2010 [employer]- All Rights Reserved Reading location - IP/workstation name: [email or web address]
[2019-12-03] MEDS ORDERED: NORMAL SALINE IV ONE (13:24)
[2019-12-03] MEDS ORDERED: VANCOMYCIN HCL INJ 1000 MG VIAL IV ONE (13:26)
[2019-12-03] MEDS ORDERED: ONDANSETRON HCL INJ/PF 4 MG/2 ML SDV IV ONE (13:43)
[2019-12-03 13:47] LABS: ALCOHOL < 10 mg/dL (NONE DETECTED)
[2019-12-03 13:53] LABS: URINE AMPHETAMINES SCREEN NEGATIVE; URINE BARBITURATES SCREEN NEGATIVE; URINE BENZODIAZEPINES SCREEN NEGATIVE; URINE COCAINE SCREEN NEGATIVE; URINE MARIJUANA (THC) SCREEN NEGATIVE; URINE METHADONE SCREEN NEGATIVE; URINE PHENCYCLIDINE SCREEN NEGATIVE
--- NOTE | 2019-12-03 13:54 | ER Document Report ---
ED General - General Chief Complaint: Altered Mental Status Stated Complaint: WEAKNESS Time Seen by Provider: 12/03/19 13:20 Primary Care Provider: JONATHAN MCCURDY MD [Primary Care Provider] - Follow up as needed Notes: 74-year-old female with history of dementia presents for fever, nausea/vomiting/diarrhea, and altered mental status. Family reports that patient is usually more verbal however since being discharged from the hospital yesterday she has been less verbal and more confused. Family also reports that she has been having nausea/vomiting yesterday and 2 episodes of diarrhea yesterday. States she has not eaten anything today and has been dry heaving. Family is also concerned for constipation due to no bowel movements today. Denies any pain. Patient had a rectal temp of 100.6 per EMS. Patient was just discharged from the hospital yesterday for new onset A. fib. TRAVEL OUTSIDE OF THE [place] IN LAST 30 DAYS: No - Related Data Allergies/Adverse Reactions: No Known Allergies Allergy (Unverified 02/13/15 13:55) Past Medical History - Social History Smoking Status: Unknown if Ever Smoked Family History: Reviewed & Not Pertinent Patient has suicidal ideation: No Patient has homicidal ideation: No - Past Medical History Cardiac Medical History: Reports: Hx Atrial Fibrillation, Hx Hypertension Endocrine Medical History: Reports: Hx Diabetes Mellitus Type 2 Renal/ Medical History: Denies: Hx Peritoneal Dialysis Musculoskeletal Medical History: Reports Hx Arthritis Psychiatric Medical History: Reports: Hx Dementia Denies: Hx Depression Past Surgical History: Reports: Hx Cholecystectomy, Hx Kidney (Renal Surgery) - Immunizations Hx Diphtheria, Pertussis, Tetanus Vaccination: Yes Review of Systems - Review of Systems Notes: Per family, limited from patient due to altered mental status. Constitutional: Positive for fever. HENT: Negative for sore throat. Eyes: Negative for visual changes. Cardiovascular: Negative for chest pain. Respiratory: Negative for shortness of breath. Gastrointestinal: Positive for abdominal pain, vomiting and diarrhea. Genitourinary: Negative for dysuria. Musculoskeletal: Negative for back pain. Skin: Negative for rash. Neurological: Positive for altered mental status. Negative for headaches, weakness or numbness. 10 point ROS negative except as marked above and in HPI. Physical Exam - Vital signs Vitals: Resp 18 12/03/19 10:23 - Notes Notes: GENERAL: Well-appearing, well-nourished and in no acute distress. HEAD: Atraumatic, normocephalic. EYES: Extraocular movements intact, sclera anicteric, conjunctiva are normal. NECK: Normal range of motion, supple without lymphadenopathy or JVD. LUNGS: Breath sounds clear to auscultation bilaterally and equal. No wheezes rales or rhonchi. HEART: Irregularly irregular without murmurs, rubs or gallops. ABDOMEN: Soft, mildly tender. No guarding, no rebound. No masses appreciated. EXTREMITIES: Normal range of motion, no pitting or edema. No clubbing or cyanosis. NEUROLOGICAL: Nonverbal. Does not answer questions. Follows commands. PSYCH: Normal mood, normal affect. SKIN: Warm, Dry, normal turgor, no rashes or lesions noted. Course - Re-evaluation Re-evalutation: 12/03/19 Sepsis/Cardiac workup was initiated by RN protocol orders. CXR neg. UA neg. No leukocytosis however lactic is 2.1. Sepsis bolus ordered and broad s pectrum antibiotics. KUB ordered and then plan for admission. 12/03/19 14:48 KUB neg. Page out to Dr. Mccurdy. 12/03/19 16:[address] Mccurdy who requested medical floor. - Vital Signs Vital signs: Temp Pulse Resp BP Pulse Ox 99.3 F 19 193/97 H 90 L 12/03/19 10:30 12/03/19 16:01 12/03/19 16:01 12/03/19 16:01 - Laboratory Result Diagrams: 12/03/19 10:07 12/03/19 10:07 Laboratory results interpreted by me: 12/03/19 12/03/19 12/03/19 10:07 10:07 10:07 Lymph % (Auto) 11.5 L Seg Neutrophils % 80.6 H Glucose 155 H POC Glucose Magnesium 1.5 L Urine Protein Urine Urobilinogen 12/03/19 12/03/19 10:55 14:17 Lymph % (Auto) Seg Neutrophils % Glucose POC Glucose 131 H Magnesium Urine Protein 100 H Urine Urobilinogen 4.0 H Discharge - Discharge Clinical Impression: Nausea, vomiting, and diarrhea, Lactic acidosis Fever Qualifiers: Fever type: unspecified Qualified Code(s): R50.9 - Fever, unspecified Altered mental status Qualifiers: Altered mental status type: unspecified Qualified Code(s): R41.82 - Altered mental status, unspecified Condition: Stable Disposition: ADMITTED INPATIENT Admitting Provider: Genny Unit Admitted: Medical Floor Referrals: JONATHAN MCCURDY MD [Primary Care Provider] - Follow up as needed
--- NOTE | 2019-12-03 14:15 | RADIOLOGY REPORT (SQ) ---
EXAM DESCRIPTION: KUB/ABDOMEN (SINGLE VIEW) COMPLETED DATE/TIME: 12/03/2019 2:05 pm REASON FOR STUDY: abd pain, constipation COMPARISON: 12/02/2019. NUMBER OF VIEWS: One view. TECHNIQUE: Supine radiographic image of the abdomen acquired. LIMITATIONS: None. FINDINGS: BOWEL GAS PATTERN: Normal bowel gas pattern. No dilated loops. CALCIFICATIONS: No suspicious calcifications. SOFT TISSUES: No gross mass or suggestion of organomegaly. HARDWARE: None in the abdomen. BONES: No acute fracture. No worrisome bone lesions. OTHER: No other significant finding. IMPRESSION: NO RADIOGRAPHIC EVIDENCE FOR ACUTE ABDOMINAL DISEASE. TECHNICAL DOCUMENTATION: JOB ID: [id number] 2010 [employer]- All Rights Reserved Reading location - IP/workstation name: [email or web address]
[2019-12-03] MEDS ORDERED: CEFEPIME 2 GM/D5W RTU 2 GM/50 ML RTUPB IV ONE (14:30)
[2019-12-03 14:39] LABS: A TYPE INFLUENZA AG NEGATIVE (NEGATIVE); B INFLUENZA AG NEGATIVE (NEGATIVE)
--- NOTE | 2019-12-03 17:27 | EKG REPORT ---
SEVERITY:- ABNORMAL ECG - SINUS RHYTHM SUPRAVENTRICULAR BIGEMINY NONSPECIFIC T ABNORMALITIES, ANT-LAT LEADS : Confirmed by: Shelby Garzon MD 03-Dec-2019 17:26:37
[2019-12-03] MEDS ORDERED: (PENDING PHARMACY ID) (Valsartan/Hydrochlorothiazide [Valsartan-Hctz 320-25 Mg Tab] 1 EACH PO SCH (20:00)
[2019-12-03] MEDS ORDERED: VALSARTAN 160 MG TABLET PO ONE (20:45)
[2019-12-03] MEDS ORDERED: METOPROLOL TARTRATE 50 MG TABLET PO ONE (20:45)
[2019-12-03] MEDS ORDERED: GABAPENTIN 300 MG CAPSULE PO ONE (20:45)
[2019-12-03] MEDS ORDERED: APIXABAN 5 MG TABLET PO ONE (20:45)
[2019-12-03] MEDS ORDERED: HYDROCHLOROTHIAZIDE 25 MG TABLET PO ONE (20:45)
[2019-12-03] MEDS ORDERED: METFORMIN HCL 500 MG TABLET PO ONE (21:00)
[2019-12-03 21:03] LABS: PHOSPHORUS 3.4 mg/dL (2.5-4.5)
[2019-12-03 21:16] LABS: INTERNATIONAL RATION (INR) 1.19; PROTHROMBIN TIME 15.2 SEC (11.4-15.4)
[2019-12-03 21:19] LABS: CREATINE KINASE MB 1.49 ng/mL (<4.55); TROPONIN I 0.027 ng/mL
[2019-12-03 21:25] LABS: FREE T4 (FREE THYROXINE) 1.35 ng/dL (0.78-2.19)
[2019-12-03 21:39] LABS: THYROID STIMULATING HORMONE 1.67 uIU/mL (0.47-4.68)
[2019-12-03] MEDS: NORMAL SALINE 1000 ML 1,000 ML IV PRN (21:44)
[2019-12-03] MEDS: ATORVASTATIN CALCIUM 40 MG TABLET PO SCH (21:44)
[2019-12-03] MEDS: DONEPEZIL HCL 5 MG TABLET PO SCH (21:45)
[2019-12-04 02:49] LABS: ABSOLUTE EOSINOPHILS # (AUTO) 0.1 10^3/uL (0.0-0.6); ABSOLUTE LYMPHOCYTES (AUTO) 1.4 10^3/uL (0.5-4.7); ABSOLUTE MONOCYTES (AUTO) 0.9 10^3/uL (0.1-1.4); ABSOLUTE NEUT (AUTO) 6.6 10^3/uL (1.7-8.2); BASOPHILS % (AUTO) 0.4 % (0-2); EOSINOPHILS % (AUTO) 0.7 % (0-6); HEMATOCRIT 36.2 % (36.0-47.0); HEMOGLOBIN 12.2 g/dL (12.0-15.5); LYMPHOCYTES % (AUTO) 15.8 % (13-45); MEAN CORPUSCULAR HEMOGLOBIN 30.6 pg (27.0-33.4); MEAN CORPUSCULAR HGB CONC 33.6 g/dL (32.0-36.0); MEAN CORPUSCULAR VOLUME 91 fl (80-97); MONOCYTES % (AUTO) 10.1 % (3-13); PLATELET COUNT 190 10^3/uL (150-450); RED BLOOD COUNT 3.98 10^6/uL (3.72-5.28); RED CELL DISTRIBUTION WIDTH 13.4 % (11.5-14.0); TOTAL CELLS COUNTED % (AUTO) 100 %
[2019-12-04 03:01] LABS: ALKALINE PHOSPHATASE 58 U/L (38-126); ANION GAP 7 (5-19); ASPARTATE AMINO TRANSFERASE 18 U/L (14-36); BILIRUBIN,DIRECT 0.1 mg/dL (0.0-0.4); BILIRUBIN,TOTAL 1.2 mg/dL (0.2-1.3); BLOOD UREA NITROGEN 13 mg/dL (7-20); CARBON DIOXIDE 27 mmol/L (22-30); CHLORIDE 104 mmol/L (98-107); GLUCOSE 146 mg/dL (75-110); POTASSIUM 3.6 mmol/L (3.6-5.0); TOTAL PROTEIN 6.3 g/dL (6.3-8.2)
[2019-12-04 03:12] LABS: CREATINE KINASE MB 1.47 ng/mL (<4.55); TROPONIN I 0.033 ng/mL
[2019-12-04 08:56] LABS: CREATINE KINASE MB 1.36 ng/mL (<4.55); TROPONIN I 0.032 ng/mL
[2019-12-04] MEDS: METFORMIN HCL 500 MG TABLET PO SCH ×3 (10:39→18:33)
[2019-12-04] MEDS: HYDROCHLOROTHIAZIDE 25 MG TABLET PO SCH ×2 (10:39→18:12)
[2019-12-04] MEDS: GABAPENTIN 300 MG CAPSULE PO SCH ×5 (10:40→22:26)
[2019-12-04] MEDS: METOPROLOL TARTRATE 50 MG TABLET PO SCH ×3 (10:40→22:26)
[2019-12-04] MEDS: APIXABAN 5 MG TABLET PO SCH ×3 (10:40→18:33)
[2019-12-04] MEDS: VALSARTAN 160 MG TABLET PO SCH ×2 (10:40→18:11)
[2019-12-04] MEDS ORDERED: LORAZEPAM INJ 2 MG/1 ML VIAL IV PRN (14:33)
--- NOTE | 2019-12-04 16:00 | RADIOLOGY REPORT (SQ) ---
EXAM DESCRIPTION: MRI HEAD WITHOUT COMPLETED DATE/TIME: 12/04/2019 3:50 pm REASON FOR STUDY: suspect CVA COMPARISON: 11/27/2019. TECHNIQUE: Multiplanar imaging includes non-contrasted T1, T2, FLAIR, and diffusion with ADC map seq uences. Images stored on PACS. LIMITATIONS: Motion artifact. FINDINGS: ANATOMY: No anomalies. Normal vascular flow voids. Pituitary fossa normal. CSF SPACES: Atrophy induced prominence of ventricles and CSF spaces. CEREBRUM: High signal intensity lesions scattered throughout the white matter on FLAIR imaging with d istribution suggesting micro-vascular ischemic changes. No evidence of hemorrhage, mass, or extraaxi al fluid collection. POSTERIOR FOSSA: No signal alteration. No hemorrhage. No edema, masses or mass effect. Internal scotty tory canals, cerebello-pontine angles, mastoids normal. DIFFUSION IMAGING: Negative for acute or sub-acute infarction. ORBITS: No masses. Globes normal. PARANASAL SINUSES: No fluid levels. Mucosa normal. OTHER: No other significant finding. IMPRESSION: ATROPHY AND CHRONIC MICRO-VASCULAR ISCHEMIC CHANGES. OTHERWISE NORMAL MRI OF THE BRAIN W ITHOUT INTRAVENOUS GADOLINIUM CONTRAST. EVIDENCE OF ACUTE STROKE: NO. TECHNICAL DOCUMENTATION: JOB ID: [id number] 2010 [employer]- All Rights Reserved Reading location - IP/workstation name: [email or web address]
--- NOTE | 2019-12-04 17:26 | RADIOLOGY REPORT (SQ) ---
EXAM DESCRIPTION: CT ABD/PELVIS WITH IV ONLY COMPLETED DATE/TIME: 12/04/2019 4:13 pm REASON FOR STUDY: ABDOMINAL PAIN COMPARISON: None. TECHNIQUE: CT scan of the abdomen and pelvis performed using helical scanning technique with dynamic intravenous contrast injection. No oral contrast. Images reviewed with lung, soft tissue, and bone windows. Reconstructed coronal and sagittal MPR images reviewed. Delayed images for evaluation of the urinary system also acquired. All images stored on PACS. All CT scanners at this facility use dose modulation, iterative reconstruction, and/or weight based d osing when appropriate to reduce radiation dose to as low as reasonably achievable (ALARA). [facility]: Dose Right [facility]: CareDose [facility]: Dose Right [facility]: Teradose 4D [facility]: [employer] CONTRAST TYPE AND DOSE: contrast/concentration: Isovue 350.00 mg/ml; Total Contrast Delivered: 100.0 ml; Total Saline Delivered: 72.0 ml 100 mL Isovue 350- low osmolar. RENAL FUNCTION: BUN 13, creatinine 0.77 RADIATION DOSE: CT Rad equipment meets quality standard of care and radiation dose reduction techniq ues were employed. CTDIvol: 20.7 - 21.1 mGy. DLP: 2436 mGy-cm.. LIMITATIONS: None. FINDINGS: LOWER CHEST: Cardiomegaly. Subsegmental atelectasis. LIVER: Normal size. Subcentimeter hypodense focus within the left hepatic lobe, which is incompletel y characterized, although likely represents a cyst. No dilated ducts. SPLEEN: Normal size. No focal lesions. PANCREAS: No masses. No significant calcifications. No adjacent inflammation or peripancreatic fluid collections. Pancreatic duct not dilated. GALLBLADDER: Surgically absent. ADRENAL GLANDS: No significant masses or asymmetry. RIGHT KIDNEY AND URETER: No solid masses. 11 mm inferior pole simple cyst. Two additional probable subcentimeter superior pole simple cysts. No significant calcifications. No hydronephrosis or hydr oureter. LEFT KIDNEY AND URETER: Atrophic. AORTA AND VESSELS: Moderate abdominal aortic atherosclerosis. Infrarenal abdominal aortic ectasia. N o dissection. Renal arteries, SMA, celiac without stenosis. RETROPERITONEUM: No retroperitoneal adenopathy, hemorrhage or masses. BOWEL AND PERITONEAL CAVITY: No masses or inflammatory changes. No free fluid or peritoneal masses. APPENDIX: Normal. PELVIS: Small calcified uterine fibroids. No free fluid. 8.5 mm urinary bladder calcification. ABDOMINAL WALL: No masses. No hernias. BONES: No significant or acute findings. OTHER: No other significant finding. IMPRESSION: 8.5 mm urinary bladder calcification. No hydronephrosis. Atrophic left kidney. TECHNICAL DOCUMENTATION: JOB ID: [id number] Quality ID # [id number]: Final reports with documentation of one or more dose reduction techniques (e.g., Au tomated exposure control, adjustment of the mA and/or kV according to patient size, use of iterative reconstruction technique) 2010 [employer]- All Rights Reserved Reading location - IP/workstation name: [email or web address]--[email or web address]
--- NOTE | 2019-12-04 18:33 | PDOC H&P ---
History of Present Illness Admission Date/PCP: 12/03/19 16:57 JONATHAN MCCRUDY MD History of Present Illness: JEANETTE REDD is a 74 year old female, She was just discharged from the ospital 24 hours ago, she has underlying dementia, progressive now she is refusing to eat, take her medication. Family brought patient back to the hospital because she supposedly had altered mental status, diarrhea and vomiting. I had a long discussion with the patient's POA, I think patient need to transition to hospice, the POA daughter is in agreement, I saw patient on the floor, she is not verbally responding to conversation, she refuses to open her mouth, she is not eating, even when she eats she pocketing food in her mouth not swallowing the food. MRI of the brain was done to rule out stroke, it demonstrated cerebral atrophy there is no acute change. She also seem to have abdominal pain, CT scan of the abdomen and pelvis with IV contrast was obtained, it was negative for any acute pathology. At the last office visit she had paroxysmal atrial fibrillation, she was started on anticoagulant Eliquis Past Medical History Cardiac Medical History: Reports: Atrial Fibrillation, Hypertension Endocrine Medical History: Reports: Diabetes Mellitus Type 2 Musculoskeltal Medical History: Reports: Arthritis Psychiatric Medical History: Reports: Dementia Denies: Depression Past Surgical History Past Surgical History: Reports: Cholecystectomy Social History Smoking Status: Never Smoker Electronic Cigarette use?: No Frequency of Alcohol Use: None Hx Recreational Drug Use: No Drugs: None Hx Prescription Drug Abuse: No - Advance Directive Resuscitation Status: Full Code Family History Family History: Reviewed & Not Pertinent Parental Family History Reviewed: Yes Children Family History Reviewed: Yes Sibling(s) Family History Reviewed.: Yes Medication/Allergy Home Medications: RX: Atorvastatin Calcium [Lipitor 40 mg Tablet] 40 mg PO QHS 01/11/19 RX: Donepezil HCl [Aricept] 10 mg PO QHS 01/11/19 RX: Metformin HCl [Glucophage] 1,000 mg PO BID 01/11/19 RX: Valsartan/Hydrochlorothiazide [Valsartan-Hctz 320-25 mg Tab] 1 each PO DAILY 01/11/19 RX: Gabapentin [Neurontin 300 mg Capsule] 300 mg PO Q8 11/27/19 RX: Apixaban [Eliquis 5 mg Tablet] 5 mg PO BID #60 tablet 12/01/19 RX: Metoprolol Tartrate [Lopressor 50 mg Tablet] 50 mg PO Q12 12/03/19 Allergies/Adverse Reactions: No Known Allergies Allergy (Unverified 02/13/15 13:55) Review of Systems Constitutional: ABSENT: chills, fever(s), headache(s), weight gain, weight loss Eyes: ABSENT: visual disturbances Ears: ABSENT: hearing changes Cardiovascular: ABSENT: chest pain, dyspnea on exertion, edema, orthropnea, palpitations Respiratory: ABSENT: cough, hemoptysis Gastrointestinal: ABSENT: abdominal pain, constipation, diarrhea, hematemesis, hematochezia, nausea, vomiting Genitourinary: ABSENT: dysuria, hematuria Musculoskeletal: ABSENT: joint swelling Integumentary: ABSENT: rash, wounds Neurological: ABSENT: abnormal gait, abnormal speech, confusion, dizziness, focal weakness, syncope Psychiatric: ABSENT: anxiety, depression, homidical ideation, suicidal ideation Endocrine: ABSENT: cold intolerance, heat intolerance, menstrual abnormalities, polydipsia, polyuria Hematologic/Lymphatic: ABSENT: easy bleeding, easy bruising, lymphadenopathy Physical Exam Vital Signs: Temp Pulse Resp BP Pulse Ox 98.8 F 94 18 169/92 H 94 12/04/19 15:00 12/04/19 15:00 12/04/19 15:00 12/04/19 15:00 12/04/19 15:00 Intake & Output 12/03/19 12/04/19 12/05/19 06:59 06:59 06:59 Intake Total 1932.5 Balance 1932.5 Weight 104.1 kg General appearance: PRESENT: no acute distress, well-developed, well-nourished Head exam: PRESENT: atraumatic, normocephalic Eye exam: PRESENT: conjunctiva pink, EOMI, PERRLA Ear exam: PRESENT: normal external ear exam Mouth exam: PRESENT: moist, tongue midline Neck exam: PRESENT: full ROM Respiratory exam: PRESENT: clear to auscultation chung Cardiovascular exam: PRESENT: RRR, +S1, +S2 Vascular exam: PRESENT: normal capillary refill GI/Abdominal exam: PRESENT: normal bowel sounds, soft Rectal exam: PRESENT: deferred Neurological exam: PRESENT: alert, CN II-XII grossly intact. ABSENT: motor sensory deficit Psychiatric exam: PRESENT: appropriate affect, normal mood. ABSENT: homicidal ideation, suicidal ideation Skin exam: PRESENT: dry, intact, warm. ABSENT: cyanosis, rash Results Laboratory Results: 12/04/19 02:34 12/04/19 02:34 12/03/19 12/03/19 12/03/19 20:35 20:35 20:35 WBC RBC Hgb Hct MCV MCH MCHC RDW Plt Count Seg Neutrophils % Sodium Potassium Chloride Carbon Dioxide Anion Gap BUN Creatinine Est GFR ( Amer) Glucose Calcium Phosphorus 3.4 Magnesium 1.3 L Total Bilirubin AST Alkaline Phosphatase Ammonia < 8.7 L Total Protein Albumin Amylase 110 Lipase 314.9 H TSH Free T4 12/03/19 12/04/19 12/04/19 20:35 02:34 02:34 WBC 9.0 RBC 3.98 Hgb 12.2 Hct 36.2 MCV 91 MCH 30.6 MCHC 33.6 RDW 13.4 Plt Count 190 Seg Neutrophils % 73.0 Sodium 137.7 Potassium 3.6 Chloride 104 Carbon Dioxide 27 Anion Gap 7 BUN 13 Creatinine 0.77 Est GFR ( Amer) > 60 Glucose 146 H Calcium 9.0 Phosphorus Magnesium Total Bilirubin 1.2 AST 18 Alkaline Phosphatase 58 Ammonia Total Protein 6.3 Albumin 3.0 L Amylase Lipase TSH 1.67 Free T4 1.35 12/03/19 12/03/19 12/03/19 10:07 20:35 20:35 Creatine Kinase 58 CK-MB (CK-2) 1.49 Troponin I 0.019 0.027 12/04/19 12/04/19 12/04/19 02:34 02:34 08:10 Creatine Kinase 44 39 CK-MB (CK-2) 1.47 Troponin I 0.033 12/04/19 08:10 Creatine Kinase CK-MB (CK-2) 1.36 Troponin I 0.032 Impressions: Chest X-Ray 12/03/19 10:29 IMPRESSION: HEART ENLARGED WITHOUT FAILURE. STABLE APPEARANCE. NO ACUTE RADIOGRAPHIC FINDING IN THE CHEST. KUB X-Ray 12/03/19 13:44 IMPRESSION: NO RADIOGRAPHIC EVIDENCE FOR ACUTE ABDOMINAL DISEASE. Abdomen/Pelvis CT 12/04/19 00:00 IMPRESSION: 8.5 mm urinary bladder calcification. No hydronephrosis. Atrophic left kidney. Head MRI 12/04/19 00:00 IMPRESSION: ATROPHY AND CHRONIC MICRO-VASCULAR ISCHEMIC CHANGES. OTHERWISE NORMAL MRI OF THE BRAIN WITHOUT INTRAVENOUS GADOLINIUM CONTRAST. EVIDENCE OF ACUTE STROKE: NO. Assessment & Plan - Diagnosis (1) Rapidly progressive dementia Is this a current diagnosis for this admission?: Yes Plan: She's underlying dementia presented with symptoms or sign that suggest progressive dementia, she is not eating she is not responding to verbal command her condition continue to deteriorate. The blood pressure is elevated patient refused to take a regular p.o. medication for the control of blood pressure (2) Hypertensive urgency Is this a current diagnosis for this admission?: Yes Plan: Start IV Vasotec
[2019-12-04] MEDS: NORMAL SALINE 1000 ML 1,000 ML IV PRN (18:34)
[2019-12-04] MEDS ORDERED: ENALAPRILAT DIHYDRATE INJ/PF 2.5 MG/2 ML SDV IV ONE (22:00)
[2019-12-04] MEDS: ATORVASTATIN CALCIUM 40 MG TABLET PO SCH (22:26)
[2019-12-04] MEDS: DONEPEZIL HCL 5 MG TABLET PO SCH (22:37)
[2019-12-05] MEDS: ENALAPRILAT DIHYDRATE INJ/PF 2.5 MG/2 ML SDV IV SCH ×4 (03:24→21:52)
[2019-12-05 05:12] LABS: ABSOLUTE LYMPHOCYTES (AUTO) 1.5 10^3/uL (0.5-4.7); ABSOLUTE NEUT (AUTO) 7.3 10^3/uL (1.7-8.2); BASOPHILS % (AUTO) 0.5 % (0-2); EOSINOPHILS % (AUTO) 0.4 % (0-6); HEMATOCRIT 35.7 % (36.0-47.0); HEMOGLOBIN 12.1 g/dL (12.0-15.5); LYMPHOCYTES % (AUTO) 15.5 % (13-45); MEAN CORPUSCULAR HEMOGLOBIN 30.7 pg (27.0-33.4); MEAN CORPUSCULAR HGB CONC 33.9 g/dL (32.0-36.0); MEAN CORPUSCULAR VOLUME 91 fl (80-97); MONOCYTES % (AUTO) 10.3 % (3-13); PLATELET COUNT 202 10^3/uL (150-450); RED BLOOD COUNT 3.94 10^6/uL (3.72-5.28); RED CELL DISTRIBUTION WIDTH 13.2 % (11.5-14.0); SEGMENTED NEUTROPHILS % (AUTO) 73.3 % (42-78); TOTAL CELLS COUNTED % (AUTO) 100 %; WHITE BLOOD COUNT 9.9 10^3/uL (4.0-10.5)
[2019-12-05] MEDS: GABAPENTIN 300 MG CAPSULE PO SCH ×3 (05:54→21:49)
[2019-12-05] MEDS: VALSARTAN 160 MG TABLET PO SCH (09:43)
[2019-12-05] MEDS: METOPROLOL TARTRATE 50 MG TABLET PO SCH ×2 (09:44→21:49)
[2019-12-05] MEDS: METFORMIN HCL 500 MG TABLET PO SCH ×2 (09:44→21:02)
[2019-12-05] MEDS: APIXABAN 5 MG TABLET PO SCH ×2 (09:44→21:02)
[2019-12-05] MEDS: HYDROCHLOROTHIAZIDE 25 MG TABLET PO SCH (09:44)
--- NOTE | 2019-12-05 17:47 | PDOC PROGRESS REPORT ---
Subjective Progress Note for:: 12/05/19 Subjective:: Patient condition continues to decline, I had a long discussion with family, family in agreement with hospice Reason For Visit: GASTROENTERITIS,ACUTE,VIRAL SYNDROME Physical Exam Vital Signs: Temp Pulse Resp BP Pulse Ox 98.6 F 99 18 160/118 H 97 12/05/19 16:00 12/05/19 16:00 12/05/19 16:00 12/05/19 16:00 12/05/19 16:00 Intake & Output 12/04/19 12/05/19 12/06/19 06:59 06:59 06:59 Intake Total 1932.5 1999 100 Balance 1932.5 1999 Weight 104.1 kg 112.1 kg 112.1 kg General appearance: PRESENT: no acute distress Eye exam: PRESENT: PERRLA Respiratory exam: PRESENT: clear to auscultation chung Cardiovascular exam: PRESENT: +S1, +S2 GI/Abdominal exam: PRESENT: soft Neurological exam: PRESENT: alert Results Laboratory Results: 12/05/19 04:16 12/04/19 02:34 12/05/19 04:16 WBC 9.9 RBC 3.94 Hgb 12.1 Hct 35.7 L MCV 91 MCH 30.7 MCHC 33.9 RDW 13.2 Plt Count 202 Seg Neutrophils % 73.3 12/03/19 12/03/19 12/03/19 10:07 20:35 20:35 Creatine Kinase 58 CK-MB (CK-2) 1.49 Troponin I 0.019 0.027 12/04/19 12/04/19 12/04/19 02:34 02:34 08:10 Creatine Kinase 44 39 CK-MB (CK-2) 1.47 Troponin I 0.033 12/04/19 08:10 Creatine Kinase CK-MB (CK-2) 1.36 Troponin I 0.032 Impressions: Chest X-Ray 12/03/19 10:29 IMPRESSION: HEART ENLARGED WITHOUT FAILURE. STABLE APPEARANCE. NO ACUTE RADIOGRAPHIC FINDING IN THE CHEST. KUB X-Ray 12/03/19 13:44 IMPRESSION: NO RADIOGRAPHIC EVIDENCE FOR ACUTE ABDOMINAL DISEASE. Abdomen/Pelvis CT 12/04/19 00:00 IMPRESSION: 8.5 mm urinary bladder calcification. No hydronephrosis. Atrophic left kidney. Head MRI 12/04/19 00:00 IMPRESSION: ATROPHY AND CHRONIC MICRO-VASCULAR ISCHEMIC CHANGES. OTHERWISE NORMAL MRI OF THE BRAIN WITHOUT INTRAVENOUS GADOLINIUM CONTRAST. EVIDENCE OF ACUTE STROKE: NO. Assessment & Plan - Diagnosis (1) Rapidly progressive dementia Is this a current diagnosis for this admission?: Yes Plan: Discharge planning consulted to arrange for hospice (2) T2DM (type 2 diabetes mellitus) Qualifiers: Diabetes mellitus oil heaterman insulin use: without oil heaterman use Diabetes mellitus complication status: with neurologic complications Diabetes mellitus complication detail: with polyneuropathy Qualified Code(s): E11.42 - Type 2 diabetes mellitus with diabetic polyneuropathy Is this a current diagnosis for this admission?: Yes - Time Time Spent with patient: 15-24 minutes Level of Care: TELE
[2019-12-05] MEDS: ATORVASTATIN CALCIUM 40 MG TABLET PO SCH (21:49)
[2019-12-05] MEDS: DONEPEZIL HCL 5 MG TABLET PO SCH (21:49)
[2019-12-06] MEDS: NORMAL SALINE 1000 ML 1,000 ML IV PRN (01:14)
[2019-12-06] MEDS: ENALAPRILAT DIHYDRATE INJ/PF 2.5 MG/2 ML SDV IV SCH ×4 (02:07→21:48)
[2019-12-06 06:25] LABS: ABSOLUTE EOSINOPHILS # (AUTO) 0.1 10^3/uL (0.0-0.6); ABSOLUTE LYMPHOCYTES (AUTO) 1.8 10^3/uL (0.5-4.7); ABSOLUTE NEUT (AUTO) 5.9 10^3/uL (1.7-8.2); BASOPHILS % (AUTO) 0.4 % (0-2); HEMATOCRIT 33.2 % (36.0-47.0); HEMOGLOBIN 11.5 g/dL (12.0-15.5); LYMPHOCYTES % (AUTO) 20.1 % (13-45); MEAN CORPUSCULAR HGB CONC 34.6 g/dL (32.0-36.0); MEAN CORPUSCULAR VOLUME 90 fl (80-97); MONOCYTES % (AUTO) 10.9 % (3-13); PLATELET COUNT 208 10^3/uL (150-450); SEGMENTED NEUTROPHILS % (AUTO) 67.6 % (42-78); TOTAL CELLS COUNTED % (AUTO) 100 %; WHITE BLOOD COUNT 8.7 10^3/uL (4.0-10.5)
[2019-12-06] MEDS: GABAPENTIN 300 MG CAPSULE PO SCH ×3 (06:26→22:13)
[2019-12-06] MEDS: VALSARTAN 160 MG TABLET PO SCH (09:40)
[2019-12-06] MEDS: APIXABAN 5 MG TABLET PO SCH ×2 (09:40→19:58)
[2019-12-06] MEDS: METFORMIN HCL 500 MG TABLET PO SCH ×2 (09:41→19:58)
[2019-12-06] MEDS: HYDROCHLOROTHIAZIDE 25 MG TABLET PO SCH (09:41)
[2019-12-06] MEDS: METOPROLOL TARTRATE 50 MG TABLET PO SCH ×2 (09:44→22:12)
--- NOTE | 2019-12-06 20:07 | PDOC DISCHARGE SUMMARY ---
Impression - Admit/DC Date/PCP Admission Date/Primary Care Provider: 12/03/19 16:57 JONATHAN MCCURDY MD Discharge Date: 12/06/19 - Discharge Diagnosis (1) Rapidly progressive dementia Is this a current diagnosis for this admission?: Yes (2) Hypertensive urgency Is this a current diagnosis for this admission?: Yes (3) Nausea with vomiting, unspecified Is this a current diagnosis for this admission?: Yes - Additional Information Resuscitation Status: Full Code Referrals: JONATHAN MCCURDY MD [Primary Care Provider] - () Home Medications: RX: Atorvastatin Calcium [Lipitor 40 mg Tablet] 40 mg PO QHS 01/11/19 RX: Donepezil HCl [Aricept] 10 mg PO QHS 01/11/19 RX: Metformin HCl [Glucophage] 1,000 mg PO BID 01/11/19 RX: Valsartan/Hydrochlorothiazide [Valsartan-Hctz 320-25 mg Tab] 1 each PO DAILY 01/11/19 RX: Gabapentin [Neurontin 300 mg Capsule] 300 mg PO Q8 11/27/19 RX: Apixaban [Eliquis 5 mg Tablet] 5 mg PO BID #60 tablet 12/01/19 RX: Metoprolol Tartrate [Lopressor 50 mg Tablet] 50 mg PO Q12 12/03/19 History of Present Illiness History of Present Illness: JEANETTE REDD is a 74 year old female, She was just discharged from the hospital 24 hours ago, she has underlying dementia, progressive now she is refusing to eat, take her medication. Family brought patient back to the hospital because she supposedly had altered mental status, diarrhea and vomiting. I had a long discussion with the patient's POA, I think patient need to transition to hospice, the POA daughter is in agreement, I saw patient on the floor, she is not verbally responding to conversation, she refuses to open her mouth, she is not eating, even when she eats she pocketing food in her mouth not swallowing the food. MRI of the brain was done to rule out stroke, it demonstrated cerebral atrophy there is no acute change. She also seem to have abdominal pain, CT scan of the abdomen and pelvis with IV contrast was obtained, it was negative for any acute pathology. At the last office visit she had paroxysmal atrial fibrillation, she was started on anticoagulant [facility] Course Hospital Course: Patient was admitted for the management of nausea vomiting, abdominal pain, progressive dementia, hypertensive urgency, patient refused to take a regular oral medication for the control blood pressure, she was treated with IV vancomycin for the control blood pressure.I had a long discussion with patient's daughter and son regarding future care, the family opted for hospice care going forward.Patient refused to eat but family declined alternative nutrition including feeding tube Physical Exam Vital Signs: Temp Pulse Resp BP Pulse Ox 99.7 F 109 H 18 174/97 H 98 12/06/19 15:18 12/06/19 15:18 12/06/19 15:18 12/06/19 15:18 12/06/19 15:18 Intake & Output 12/05/19 12/06/19 12/07/19 06:59 06:59 06:59 Intake Total 1999 275 358 Balance 1999 275 358 Weight 112.1 kg 108.5 kg General appearance: PRESENT: no acute distress Eye exam: PRESENT: PERRLA Respiratory exam: PRESENT: clear to auscultation chung Cardiovascular exam: PRESENT: +S1, +S2 GI/Abdominal exam: PRESENT: soft Neurological exam: PRESENT: alert, CN II-XII grossly intact Results Laboratory Results: WBC 8.7 10^3/uL (4.0-10.5) 12/06/19 05:39 RBC 3.70 10^6/uL (3.72-5.28) L 12/06/19 05:39 Hgb 11.5 g/dL (12.0-15.5) L 12/06/19 05:39 Hct 33.2 % (36.0-47.0) L 12/06/19 05:39 MCV 90 fl (80-97) 12/06/19 05:39 MCH 31.0 pg (27.0-33.4) 12/06/19 05:39 MCHC 34.6 g/dL (32.0-36.0) 12/06/19 05:39 RDW 13.0 % (11.5-14.0) 12/06/19 05:39 Plt Count 208 10^3/uL (150-450) 12/06/19 05:39 Lymph % (Auto) 20.1 % (13-45) 12/06/19 05:39 [place] % (Auto) 10.9 % (3-13) 12/06/19 05:39 Eos % (Auto) 1.0 % (0-6) 12/06/19 05:39 Baso % (Auto) 0.4 % (0-2) 12/06/19 05:39 Absolute Neuts (auto) 5.9 10^3/uL (1.7-8.2) 12/06/19 05:39 Absolute Lymphs (auto) 1.8 10^3/uL (0.5-4.7) 12/06/19 05:39 Absolute Monos (auto) 1.0 10^3/uL (0.1-1.4) 12/06/19 05:39 Absolute Eos (auto) 0.1 10^3/uL (0.0-0.6) 12/06/19 05:39 Absolute Basos (auto) 0.0 10^3/uL (0.0-0.2) 12/06/19 05:39 Seg Neutrophils % 67.6 % (42-78) 12/06/19 05:39 PT 15.2 SEC (11.4-15.4) 12/03/19 20:35 INR 1.19 12/03/19 20:35 VBG pH 7.38 (7.30-7.42) 12/03/19 10:42 VBG pCO2 47.3 mmHg (35-63) 12/03/19 10:42 VBG HCO3 27.1 mmol/L (20-32) 12/03/19 10:42 VBG Base Excess 1.4 mmol/L 12/03/19 10:42 Sodium 137.7 mmol/L (137-145) 12/04/19 02:34 Potassium 3.6 mmol/L (3.6-5.0) 12/04/19 02:34 Chloride 104 mmol/L (98-107) 12/04/19 02:34 Carbon Dioxide 27 mmol/L (22-30) 12/04/19 02:34 Anion Gap 7 (5-19) 12/04/19 02:34 BUN 13 mg/dL (7-20) 12/04/19 02:34 Creatinine 0.77 mg/dL (0.52-1.25) 12/04/19 02:34 Est GFR ( Amer) > 60 (>60) 12/04/19 02:34 Est GFR (MDRD) Non-Af > 60 (>60) 12/04/19 02:34 Glucose 146 mg/dL (75-110) H 12/04/19 02:34 POC Glucose 181 mg/dL (70-110) H 12/05/19 15:52 Hemoglobin A1c % 7.4 % (4.7-6.0) H 12/04/19 02:34 Lactic Acid 1.3 mmol/L (0.7-2.1) 12/03/19 16:28 Calcium 9.0 mg/dL (8.4-10.2) 12/04/19 02:34 Phosphorus 3.4 mg/dL (2.5-4.5) 12/03/19 20:35 Magnesium 1.3 mg/dL (1.6-2.3) L 12/03/19 20:35 Total Bilirubin 1.2 mg/dL (0.2-1.3) 12/04/19 02:34 Direct Bilirubin 0.1 mg/dL (0.0-0.4) 12/04/19 02:34 Neonat Total Bilirubin Not Reportable 12/04/19 02:34 Neonat Direct Bilirubin Not Reportable 12/04/19 02:34 Neonat Indirect Bili Not Reportable 12/04/19 02:34 AST 18 U/L (14-36) 12/04/19 02:34 ALT 8 U/L (<35) 12/04/19 02:34 Alkaline Phosphatase 58 U/L (38-126) 12/04/19 02:34 Ammonia < 8.7 umol/L (9-33) L 12/03/19 20:35 Creatine Kinase 39 U/L (30-135) 12/04/19 08:10 CK-MB (CK-2) 1.36 ng/mL (<4.55) 12/04/19 08:10 Troponin I 0.032 ng/mL 12/04/19 08:10 Total Protein 6.3 g/dL (6.3-8.2) 12/04/19 02:34 Albumin 3.0 g/dL (3.5-5.0) L 12/04/19 02:34 Amylase 110 U/L (30-110) 12/03/19 20:35 Lipase 314.9 U/L (23-300) H 12/03/19 20:35 TSH 1.67 uIU/mL (0.47-4.68) 12/03/19 20:35 Free T4 1.35 ng/dL (0.78-2.19) 12/03/19 20:35 Urine Color YELLOW 12/03/19 10:55 Urine Appearance CLEAR 12/03/19 10:55 Urine pH 5.0 (5.0-9.0) 12/03/19 10:55 Ur Specific [place] 1.017 12/03/19 10:55 Urine Protein 100 mg/dL (NEGATIVE) H 12/03/19 10:55 Urine Glucose (UA) NEGATIVE mg/dL (NEGATIVE) 12/03/19 10:55 Urine Ketones NEGATIVE mg/dL (NEGATIVE) 12/03/19 10:55 Urine Blood NEGATIVE (NEGATIVE) 12/03/19 10:55 Urine Nitrite (Reflex) NEGATIVE (NEGATIVE) 12/03/19 10:55 Urine Bilirubin NEGATIVE (NEGATIVE) 12/03/19 10:55 Urine Urobilinogen 4.0 mg/dL (<2.0) H 12/03/19 10:55 Leukocyte Esterase Rfl NEGATIVE (NEGATIVE) 12/03/19 10:55 Urine RBC (Auto) 2 /HPF 12/03/19 10:55 Urine WBC (Reflex) 1 /HPF 12/03/19 10:55 Squamous Epi Cells Auto <1 /HPF 12/03/19 10:55 Urine Mucus (Auto) RARE /LPF 12/03/19 10:55 Urine Ascorbic Acid NEGATIVE (NEGATIVE) 12/03/19 10:55 Urine Opiates Screen NEGATIVE 12/03/19 10:55 Urine Methadone Screen NEGATIVE 12/03/19 10:55 Ur Barbiturates Screen NEGATIVE 12/03/19 10:55 Ur Phencyclidine Scrn NEGATIVE 12/03/19 10:55 Ur Amphetamines Screen NEGATIVE 12/03/19 10:55 U Benzodiazepines Scrn NEGATIVE 12/03/19 10:55 Urine Cocaine Screen NEGATIVE 12/03/19 10:55 U Marijuana (THC) Screen NEGATIVE 12/03/19 10:55 Serum Alcohol < 10 mg/dL (NONE DETECTED) 12/03/19 10:07 Influenza A (Rapid) NEGATIVE (NEGATIVE) 12/03/19 14:08 Influenza B (Rapid) NEGATIVE (NEGATIVE) 12/03/19 14:08 12/03/19 12/03/19 12/04/19 10:07 20:35 02:34 CK-MB (CK-2) 1.49 1.47 Troponin I 0.019 0.027 0.033 12/04/19 08:10 CK-MB (CK-2) 1.36 Troponin I 0.032 Impressions: Chest X-Ray 12/03/19 10:29 IMPRESSION: HEART ENLARGED WITHOUT FAILURE. STABLE APPEARANCE. NO ACUTE RADIOGRAPHIC FINDING IN THE CHEST. KUB X-Ray 12/03/19 13:44 IMPRESSION: NO RADIOGRAPHIC EVIDENCE FOR ACUTE ABDOMINAL DISEASE. Abdomen/Pelvis CT 12/04/19 00:00 IMPRESSION: 8.5 mm urinary bladder calcification. No hydronephrosis. Atrophic left kidney. Head MRI 12/04/19 00:00 IMPRESSION: ATROPHY AND CHRONIC MICRO-VASCULAR ISCHEMIC CHANGES. OTHERWISE NORMAL MRI OF THE BRAIN WITHOUT INTRAVENOUS GADOLINIUM CONTRAST. EVIDENCE OF ACUTE STROKE: NO. Stroke Is this a Stroke Patient?: No Acute Heart Failure - Is this a Heart Failure Patient?: No
[2019-12-06] MEDS: DONEPEZIL HCL 5 MG TABLET PO SCH (22:12)
[2019-12-06] MEDS: ATORVASTATIN CALCIUM 40 MG TABLET PO SCH (22:12)
[2019-12-07] MEDS: HYDROMORPHONE HCL INJ/PF 2 MG/ML AMPULE IV PRN ×2 (00:52→08:37)
[2019-12-07] MEDS: ENALAPRILAT DIHYDRATE INJ/PF 2.5 MG/2 ML SDV IV SCH ×2 (02:54→08:38)
[2019-12-07] MEDS: GABAPENTIN 300 MG CAPSULE PO SCH ×2 (06:58→13:15)
[2019-12-07] MEDS: HYDROCHLOROTHIAZIDE 25 MG TABLET PO SCH (10:25)
[2019-12-07] MEDS: VALSARTAN 160 MG TABLET PO SCH (10:25)
[2019-12-07] MEDS: METOPROLOL TARTRATE 50 MG TABLET PO SCH (10:25)
[2019-12-07] MEDS: METFORMIN HCL 500 MG TABLET PO SCH (10:25)
[2019-12-07] MEDS: APIXABAN 5 MG TABLET PO SCH (10:25)
[2019-12-07 12:14] VITALS: BP 188/122
== END 2019-12-07 15:00 | disposition hospice, home (50) ==
LOC: ER 10:20 → INTOOBSV 16:57 → EH 16:57 → 5 18:28
PROVIDERS: ADMIT Internal Medicine; ATTEND Internal Medicine
DX: F03.90 Unspecified dementia, unspecified severity, without behavioral disturbance, psychotic disturbance, mood disturbance, and anxiety (principal); I16.0 Hypertensive urgency; R11.2 Nausea with vomiting, unspecified; R19.7 Diarrhea, unspecified; I48.0 Paroxysmal atrial fibrillation; R10.9 Unspecified abdominal pain; N32.89 Other specified disorders of bladder; N26.1 Atrophy of kidney (terminal); R63.3 Feeding difficulties; E11.42 Type 2 diabetes mellitus with diabetic polyneuropathy; R50.9 Fever, unspecified; Z72.4 Inappropriate diet and eating habits; Z91.14 Patient's other noncompliance with medication regimen
CPT/HCPCS: 93005; 99285; 96375; 96365; 96367; 36415 ×4; 87040; 84439; 82553 ×2; 82962 ×3; 80307 ×2; 82140; 82150; 82550 ×2; 83605; 83690; 83735; 84100; 84443; 85025 ×4; 85610; 80053 ×2; 81001; 84484 ×2; 83036; 82803; 87804; 70551; 71045; 74018; 74177; 93010; J3490 ×4; A9270 ×9; J1170; J2060; J2405; J7030 ×3; J3370; J0692; G0378